=== PATIENT | male | born 1960 | race Hispanic/Latino ===

== ENCOUNTER 2018-11-25 13:42 | Emergency (ER) | payer MEDICAID, OTHER ==
[2018-11-25 14:31] LABS: #Eosinphils 0.1 thou/uL (0.0-0.7); #Lymphocytes 1.2 thou/uL (1.20-3.40); #Monocytes 0.8 thou/uL (0.11-0.59); #Neutrophils 17.6 thou/uL (1.40-6.50); %Basophils 0.1 % (0.0-1.0); %Eosinophils 0.5 % (0.0-10.0); %Lymphocytes 6.1 % (21.0-51.0); %Monocytes 4.1 % (0.0-10.0); %Neutrophils 89.3 % (42.0-75.0); Hemoglobin 10.7 g/dL (14.0-18.0); Mean Corpuscular HGB CONC 34.7 g/dL (32.0-36.0); Mean Corpuscular Hemoglobin 31.7 pg (27.0-31.0); Mean Corpuscular Volume 91.6 fL (78.0-98.0); Mean Platelet Volume 6.9 fL (7.4-10.4); Platelet Count 176 thou/uL (130-400); RBC Distribution Width 12.3 % (11.5-14.5); Red Blood Cell (RBC) Count 3.38 mill/uL (4.70-6.10); White Blood Cell (WBC) Count 19.7 thou/uL (4.8-10.8)
[2018-11-25 14:48] LABS: ALT (SGPT) 17 U/L (8-55); AST (SGOT) 36 U/L (5-34); Albumin 1.8 g/dL (3.5-5.0); Alkaline Phosphatase 139 U/L (40-150); Anion Gap 11 mmol/L (10-20); BUN (Urea Nitrogen) 38 mg/dL (8.4-25.7); Bilirubin, Total 1.5 mg/dL (0.2-1.2); Calc. Creatinine Clearance 0 mL/min (70-130); Calcium 7.8 mg/dL (7.8-10.44); Carbon Dioxide 22 mmol/L (22-29); Chloride 108 mmol/L (98-107); Estimated GFR-MDRD 67; Globulin 3.4 g/dL (2.4-3.5); Glucose 258 mg/dL (70-105); Potassium 4.3 mmol/L (3.5-5.1); Protein, Total 5.2 g/dL (6.0-8.3); Sodium 137 mmol/L (136-145)
--- NOTE | 2018-11-25 15:05 | RAD ---
PORTABLE CHEST: Date: 11/25/18 HISTORY: Cough. FINDINGS: Heart size is within normal limits for portable technique. Mediastinal structures are unremarkable. L ungs are clear of infiltrates. Slight increased density in the right upper lobe is felt to be on the basis of superimposition. IMPRESSION: No active intrathoracic disease. POS: [facility]
[2018-11-25] MEDS ORDERED: cefTRIAXone\\ROCEPHIN 2 GM VIAL ONE (15:58)
--- NOTE | 2018-11-25 17:31 | ULT ---
ULTRASOUND WITH DOPPLER DUPLEX VENOUS LOWER EXTREMITY LEFT: CPT: 50453 ICD-10-PCS: B54D INDICATION: Fever, edema, pain. TECHNIQUE: Color flow Doppler, spectral waveform analysis of pulsed Doppler, and carey-scale imaging with arcelia mohsen and augmentation, were used to evaluate the left common femoral, femoral, popliteal, posterior t ibial, and superficial femoral, veins; and the proximal portions of the profunda femoral and greater saphenous, veins. FINDINGS: There is appropriate compressibility and flow within the imaged deep vein system of the left lower ex tremity without evidence of deep venous thrombosis. Incidental note of enlarged left inguinal region lymph node, greater than 3.0 cm in length. There is soft tissue edema. IMPRESSION: 1. No deep venous thrombosis of imaged left lower extremity. 2. Left inguinal adenopathy, correlate clinically. 3. Soft tissue edema. POS: [facility]
== END 2018-11-25 17:23 | disposition home or self-care (01) ==
LOC: ERS 13:42
DX: L03.116 Cellulitis of left lower limb (principal); I50.9 Heart failure, unspecified; E11.9 Type 2 diabetes mellitus without complications; Z79.899 Other long term (current) drug therapy
CPT/HCPCS: 36415; 71045; 80048; 83605; 85025; 87040; 87077; 87149; 87186; 87804; 93005; 96361; 96365; J0696

== ENCOUNTER 2018-12-09 10:43 | Emergency (ER) | payer MEDICAID, OTHER ==
[2018-12-09] MEDS ORDERED: HYDROcodone/Acetaminophen 10/325 mg Tablet ONE (11:22)
[2018-12-09 11:37] LABS: #Basophils 0.1 thou/uL (0.0-0.2); #Eosinphils 1.3 thou/uL (0.0-0.7); #Lymphocytes 1.8 thou/uL (1.20-3.40); #Monocytes 0.5 thou/uL (0.11-0.59); %Eosinophils 13.5 % (0.0-10.0); %Lymphocytes 18.3 % (21.0-51.0); %Monocytes 5.2 % (0.0-10.0); Hemoglobin 9.7 g/dL (14.0-18.0); Mean Corpuscular HGB CONC 34.2 g/dL (32.0-36.0); Mean Corpuscular Hemoglobin 32.7 pg (27.0-31.0); Mean Corpuscular Volume 95.4 fL (78.0-98.0); Mean Platelet Volume 6.4 fL (7.4-10.4); Platelet Count 169 thou/uL (130-400); RBC Distribution Width 13.1 % (11.5-14.5); Red Blood Cell (RBC) Count 2.98 mill/uL (4.70-6.10); White Blood Cell (WBC) Count 9.7 thou/uL (4.8-10.8)
[2018-12-09 12:15] LABS: Bilirubin Negative (Negative); Blood, Urine Large (Negative); Clarity CLEAR (Clear); Glucose, Urine (Dipstick) Negative (Negative); Leukocyte Negative (Negative); Nitrite Negative (Negative); Protein, Urine (Dipstick) 100 mg/dL (Neg-Trace); Urobilinogen 0.2 mg/dL (0.2-1.0)
[2018-12-09 12:16] LABS: ALT (SGPT) 16 U/L (8-55); AST (SGOT) 31 U/L (5-34); Albumin 1.7 g/dL (3.5-5.0); Alkaline Phosphatase 123 U/L (40-150); Anion Gap 8 mmol/L (10-20); BUN (Urea Nitrogen) 32 mg/dL (8.4-25.7); Bilirubin, Total 0.9 mg/dL (0.2-1.2); Calc. Creatinine Clearance 0 mL/min (70-130); Carbon Dioxide 20 mmol/L (22-29); Chloride 113 mmol/L (98-107); Estimated GFR-MDRD 83; Globulin 3.1 g/dL (2.4-3.5); Glucose 301 mg/dL (70-105); Potassium 4.7 mmol/L (3.5-5.1); Protein, Total 4.8 g/dL (6.0-8.3)
[2018-12-09 12:21] LABS: Pathc Cast-AUWi Flag 2.31 (0-2.49); Squamous Epithelial 0-3 HPF (0-3); WBC/HPF 0-3 HPF (0-3)
[2018-12-09 12:22] LABS: Sodium 136 mmol/L (136-145)
[2018-12-09 12:33] LABS: Bacteria/HPF Rare-Few HPF (None Seen); Hyaline Casts/LPF NONE SEEN LPF (0-3 Hyaline)
--- NOTE | 2018-12-09 13:34 | ULT ---
VENOUS DOPPLER ULTRASOUND OF THE LEFT LOWER EXTREMITY: Date: 12/09/18 HISTORY: Left lower extremity edema and erythema. TECHNIQUE: Lemon scale ultrasound with color flow and spectral Doppler imaging of the deep venous systems of the left lower extremity was performed. FINDINGS: There is good flow, compression, and augmentation noted in the common femoral, femoral, deep femoral, popliteal, posterior tibial, and greater saphenous veins in the left lower extremity. Enlarged left groin lymph nodes are seen, measuring up to 3.4 cm. IMPRESSION: No evidence of deep venous thrombosis in the left lower extremity. POS: [facility]
== END 2018-12-09 13:13 | disposition home or self-care (01) ==
LOC: ERS 10:43
DX: L03.116 Cellulitis of left lower limb (principal); I50.9 Heart failure, unspecified; E11.9 Type 2 diabetes mellitus without complications; Z79.899 Other long term (current) drug therapy; Z79.4 Long term (current) use of insulin
CPT/HCPCS: 36415; 80053; 81003; 81015; 85025; 86140

== ENCOUNTER 2019-01-03 15:57 | Emergency (ER) | payer OTHER | END 2019-01-03 16:31 | disposition left against medical advice (07) | LOC: ERS 15:57 | DX: Z53.21 Procedure and treatment not carried out due to patient leaving prior to being seen by health care provider (principal) ==

== ENCOUNTER 2019-01-04 06:04 | Inpatient (IN) | payer OTHER ==
[2019-01-04 07:01] LABS: #Basophils 0.1 thou/uL (0.0-0.2); #Eosinphils 2.2 thou/uL (0.0-0.7); #Lymphocytes 2.7 thou/uL (1.20-3.40); #Monocytes 0.6 thou/uL (0.11-0.59); #Neutrophils 3.6 thou/uL (1.40-6.50); %Basophils 1.2 % (0.0-1.0); %Eosinophils 23.8 % (0.0-10.0); %Lymphocytes 29.2 % (21.0-51.0); %Monocytes 6.7 % (0.0-10.0); %Neutrophils 39.1 % (42.0-75.0); Hemoglobin 9.5 g/dL (14.0-18.0); Mean Corpuscular Hemoglobin 32.2 pg (27.0-31.0); Mean Corpuscular Volume 94.7 fL (78.0-98.0); Mean Platelet Volume 6.7 fL (7.4-10.4); Platelet Count 138 thou/uL (130-400); RBC Distribution Width 13.7 % (11.5-14.5); Red Blood Cell (RBC) Count 2.95 mill/uL (4.70-6.10); White Blood Cell (WBC) Count 9.1 thou/uL (4.8-10.8)
[2019-01-04 07:26] LABS: ALT (SGPT) 18 U/L (8-55); AST (SGOT) 39 U/L (5-34); Albumin 1.5 g/dL (3.5-5.0); Alkaline Phosphatase 185 U/L (40-150); Anion Gap 8 mmol/L (10-20); BUN (Urea Nitrogen) 25 mg/dL (8.4-25.7); Bilirubin, Total 0.7 mg/dL (0.2-1.2); Calc. Creatinine Clearance 0 mL/min (70-130); Calcium 7.9 mg/dL (7.8-10.44); Carbon Dioxide 24 mmol/L (22-29); Chloride 109 mmol/L (98-107); Estimated GFR-MDRD 82; Globulin 3.4 g/dL (2.4-3.5); Glucose 187 mg/dL (70-105); Potassium 4.6 mmol/L (3.5-5.1); Protein, Total 4.9 g/dL (6.0-8.3); Sodium 136 mmol/L (136-145)
[2019-01-04 08:15] VITALS: BMI 35.5
[2019-01-04] MEDS ORDERED: Bisacodyl 5 MG TAB PO PRN (08:44)
[2019-01-04] MEDS ORDERED: Vancomycin HCl 1 GM in Premix Bag 1 BAG IVPB SCH (08:45)
[2019-01-04] MEDS ORDERED: Dextrose 50% Abboject 50 ML SYRINGE SLOW IVP PRN (08:49)
[2019-01-04] MEDS ORDERED: Dextrose 5% in Water 1,000 ML IV PRN (08:49)
[2019-01-04] MEDS ORDERED: Piperacillin/Tazobactam 3.375 GM in Sodium Chloride 0.9% 100 ML IVPB SCH (09:00)
[2019-01-04] MEDS: Vancomycin HCl 1.5 GM in Sodium Chloride 0.9% 250 ML 300 ML IVPB SCH ×2 (09:26→21:07)
[2019-01-04] MEDS: traMADol HCl 50 MG TAB PO PRN ×2 (09:26→20:13)
[2019-01-04] MEDS: Enoxaparin Sodium 40 MG/0.4 ML SYRINGE SC SCH (09:28)
--- NOTE | 2019-01-04 11:44 | HP ---
PRIMARY CARE PROVIDER: Dr. Jean Pierre Kerr. COMMUNICATIONS EQUIPMENT OPERATOR: Dr. Chambers. JEWELRY RACKER: Dr. Shaw. CHIEF COMPLAINT: Left leg abscess. HISTORY OF PRESENT ILLNESS: Mr. Eanrest Godwin is a pleasant 58-year-old gentleman, who was seen at [facility] on 01/04/2019. He reports that he has had cellulitis over the left leg for the last month. On 11/25/2018, he presented to the emergency room with left leg cellulitis. He also met the criteria for sepsis. He was advised admission for inpatient treatment. He did not wish to be admitted to the hospital. He received a dose of ceftriaxone and was discharged home on Keflex and clindamycin. He presented again to the emergency room on 12/04/2018 for ongoing left leg cellulitis. He was discharged home with doxycycline. He presented to the emergency room yesterday again, but left without being seen. He again returned to the emergency room because of ongoing cellulitis. He was found to have an abscess and underwent incision and drainage in the emergency room. Because he failed outpatient antibiotic therapy, he is being admitted to the hospital for intravenous antibiotics. He reports pain in the left leg, sharp, 8/10 at its worst, radiating to the knee. He is able to walk. He denies any fevers or chills. He denies any nausea or vomiting. REVIEW OF SYSTEMS: All other systems reviewed and found to be negative. PAST MEDICAL HISTORY: 1. Cirrhosis. 2. Hypertension. 3. Heart failure. 4. Diabetes mellitus type 2. PAST SURGICAL HISTORY: Incision and drainage in the emergency room earlier today of left leg abscess. SOCIAL HISTORY: The patient denies tobacco use, alcohol use, or recreational drug use. ALLERGIES: NO KNOWN DRUG ALLERGIES. CURRENT MEDICATIONS: 1. Potassium chloride 10 mEq 2 times a day. 2. Spironolactone 100 mg 2 times a day. 3. Xifaxan 550 mg 2 times a day. 4. Decara 50,000 units once a week. 5. Lasix 40 mg 2 times a day. 6. Propranolol 20 mg 2 times a day. 7. Folic acid 1 mg daily. 8. Losartan 25 mg daily. 9. Tramadol p.r.n. FAMILY HISTORY: No family history of premature coronary artery disease. PHYSICAL EXAMINATION: GENERAL: On examination, Mr. Earnest Godwin is awake and alert, not in acute distress. VITAL SIGNS: Blood pressure is 150/62, pulse 61, respiratory rate 16, and oxygen saturation 99% on room air. He is afebrile. EYES: No scleral icterus. No conjunctival pallor. ENT: Moist mucosal membranes. No oropharyngeal erythema or exudates. NECK: Supple, nontender. Trachea is midline. RESPIRATORY: Accessory muscles of breathing are not active. Chest wall movements are symmetric bilaterally. Lungs are clear to auscultation without wheeze, rhonchi, or crepitations. CARDIOVASCULAR: S1 and S2 are heard, regular. Peripheral pulses palpable. NEUROLOGIC: Cranial nerves 2 through 12 intact. No flapping tremor. MUSCULOSKELETAL: Power is 5/5 in all 4 extremities. SKIN: He has bilateral lower extremity edema. He also has stasis dermatitis over the left lower extremity. He also has dressing over incision and drainage site of the abscess. LYMPHATIC: No inguinal lymphadenopathy. PSYCHIATRIC: Normal mood. Normal affect. The patient is oriented to person, place, and time. LABORATORY DATA: Mr. Tinoco's labs and investigations were reviewed. He has normal white count, normocytic anemia with hemoglobin 9.5, normal platelet count , normal sodium, normal potassium, and normal creatinine. Total bilirubin is normal. Lactic acid is normal. AST is elevated at 39, ALT is normal at 18, and alkaline phosphatase is elevated at 185. Albumin is decreased at 1.5. ASSESSMENT AND PLAN: Mr. Earnest Godwin is a pleasant 58-year-old gentleman, who was seen at [facility] on 01/04/2019. His problem list includes: 1. Leg abscess: Mr. Earnest Godwin is presenting with left lower extremity abscess, status post incision and drainage. He has failed outpatient antibiotic therapy. We will continue him on Zosyn and vancomycin, which have been started in the emergency room. We will follow blood cultures and abscess fluid culture. 2. Diabetes mellitus type 2: We will start him on Accu-Cheks and insulin sliding scale. He reports that he takes Levemir on a sliding scale at home and has not been taking much of Levemir because his sugars have tended to be around 150. 3. Cirrhosis: We will continue home medications. 4. Congestive heart failure: The patient does not appear to be in congestive heart failure exacerbation. 5. Hypertension: We will continue home medications, monitor vital signs and titrate antihypertensives as needed. Many thanks for allowing me to participate in your patient's care. Please feel free to contact me with any questions or concerns. LEVEL OF RISK: Moderate. LEVEL OF COMPLEXITY: Moderate. Job ID: [id number] [email or web address]
[2019-01-04] MEDS: Piperacillin/Tazobactam 3.375 GM in Sodium Chloride 0.9% 100 ML IVPB SCH ×2 (12:18→17:46)
[2019-01-04] MEDS: HumaLOG 300 UNITS/3 ML VIAL SC PRN (12:18)
[2019-01-04] MEDS: Morphine 2 MG/ML SYRINGE SLOW IVP PRN ×2 (12:22→18:27)
[2019-01-04] MEDS: Acetaminophen 325 MG TAB PO PRN (20:14)
[2019-01-05] MEDS: Piperacillin/Tazobactam 3.375 GM in Sodium Chloride 0.9% 100 ML IVPB SCH ×4 (00:07→17:50)
[2019-01-05] MEDS: Morphine 2 MG/ML SYRINGE SLOW IVP PRN ×4 (00:08→17:53)
[2019-01-05] MEDS: HumaLOG 300 UNITS/3 ML VIAL SC PRN ×2 (05:24→11:58)
[2019-01-05 06:58] LABS: Anion Gap 7 mmol/L (10-20); BUN (Urea Nitrogen) 25 mg/dL (8.4-25.7); Calc. Creatinine Clearance 138 mL/min (70-130); Calcium 7.7 mg/dL (7.8-10.44); Carbon Dioxide 24 mmol/L (22-29); Chloride 110 mmol/L (98-107); Estimated GFR-MDRD 86; Glucose 134 mg/dL (70-105); Potassium 4.4 mmol/L (3.5-5.1); Sodium 137 mmol/L (136-145)
[2019-01-05 07:03] LABS: Hemoglobin 8.8 g/dL (14.0-18.0); Hypochromia SLIGHT = 6-15 cells (100X) (0-5/hpf); Lymphocytes 21 % (21-51); MDiff Complete? YES; Mean Corpuscular HGB CONC 35.1 g/dL (32.0-36.0); Mean Corpuscular Hemoglobin 33.3 pg (27.0-31.0); Mean Corpuscular Volume 94.7 fL (78.0-98.0); Mean Platelet Volume 6.7 fL (7.4-10.4); Monocytes 7 % (0-10); Neutrophil 72 % (42-75); Platelet Count 111 thou/uL (130-400); Platelet Morphology Comment Appears Adequate; RBC Distribution Width 13.6 % (11.5-14.5); Red Blood Cell (RBC) Count 2.65 mill/uL (4.70-6.10)
[2019-01-05] MEDS: Enoxaparin Sodium 40 MG/0.4 ML SYRINGE SC SCH (08:42)
[2019-01-05] MEDS: Vancomycin HCl 1.5 GM in Sodium Chloride 0.9% 250 ML 300 ML IVPB SCH ×2 (09:11→21:57)
--- NOTE | 2019-01-05 15:11 | PDOC.PN ---
- Subjective Encounter Start Date: 01/05/19 Encounter Start Time: 15:09 Subjective: feels much better -: repprts that his left leg swelling & redness & pain is much better - Objective MAR Reviewed: Yes Vital Signs & Weight: Vital Signs (12 hours) Temp Pulse Resp BP BP Pulse Ox 01/05/19 12:00 97.6 F 75 19 120/67 98 01/05/19 08:00 98 01/05/19 07:23 97.6 F 61 19 117/63 98 01/05/19 04:33 97.6 F 68 20 139/75 99 Weight Weight 240 lb 8 oz I&O: 01/04/19 01/05/19 01/06/19 06:59 06:59 06:59 Intake Total 1100 Balance 1100 Result Diagrams: 01/05/19 06:03 01/05/19 06:03 Additional Labs: Accuchecks 01/05/19 01/05/19 01/04/19 11:18 04:36 19:35 POC Glucose 214 H 160 H 170 H 01/04/19 15:45 POC Glucose 198 H Microbiology 01/04/19 Unknown Venous blood - Left Arm Blood Culture - Preliminary Specimen has been received and culture in progress. No Growth to date. 01/04/19 06:50 Venous blood - Right Arm Blood Culture - Preliminary Specimen has been received and culture in progress. No Growth to date. 01/04/19 06:32 Leg - Pending Bacterial Culture - Preliminary Gram Negative Solomon 01/04/19 06:32 Leg - Pending Bacterial Culture - Preliminary Laboratory Tests 01/04/19 Unknown Lactic Acid 0.9 Phys Exam - Physical Examination Constitutional: NAD HEENT: PERRLA, moist MMs, sclera anicteric, oral pharynx no lesions Neck: no nodes, no JVD, supple, full ROM Respiratory: no wheezing, no rales, no rhonchi, clear to auscultation bilateral Cardiovascular: RRR, no significant murmur Gastrointestinal: soft, non-tender, no distention, positive bowel sounds Musculoskeletal: no edema, pulses present Dx/Plan (1) Left leg cellulitis Code(s): L03.116 - CELLULITIS OF LEFT LOWER LIMB Status: Acute Comment: on empiric IV Abx. Failed OP ABx. 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 Follow OP w GI Case (4) H/O alcohol abuse Code(s): Z87.898 - PERSONAL HISTORY OF OTHER SPECIFIED CONDITIONS Status: Chronic Comment: Quit 2 yrs ago (5) Hepatitis C Code(s): B19.20 - UNSPECIFIED VIRAL HEPATITIS C WITHOUT HEPATIC COMA Status: Chronic Qualifiers: Viral hepatitis chronicity: chronic Comment: reports he is s/p complete Rx recently (6) Chronic CHF Code(s): I50.9 - HEART FAILURE, UNSPECIFIED Status: Chronic Qualifiers: Heart failure type: unspecified Qualified Code(s): I50.9 - Heart failure, unspecified Comment: Follow sOP w Dr. Chambers in cardiology clinic. On ARB,diuretics. compensated - Plan plan discussed w/ family, continue antibiotics, PT/OT, out of bed/ambulate, DVT proph w/SCDs cont IV ABx. follow Cx results -: pt reports recent angiogram as an Op for legs which was Normal -: recent venous doppler Left leg negative for DVT -: retsart home meds. -: am labs * . Review of Systems - Review of Systems Constitutional: negative: fever, chills, sweats, weakness, malaise, other Respiratory: negative: Cough, Dry, Shortness of Breath, Hemoptysis, SOB with Excertion, Pleuritic Pain, Sputum, Wheezing Cardiovascular: negative: chest pain, palpitations, orthopnea, paroxysmal nocturnal dyspnea, edema, light headedness, other Gastrointestinal: negative: Nausea, Vomiting, Abdominal Pain, Diarrhea, Constipation, Melena, Hematochezia, Other Genitourinary: negative: Dysuria, Frequency, Incontinence, Hematuria, Retention , Other Musculoskeletal: negative: Neck Pain, Shoulder Pain, Arm Pain, Back Pain, Hand Pain, Leg Pain, Foot Pain, Other Skin: negative: Rash, Lesions, Pardeep, Bruising, Other Neurological: negative: Weakness, Numbness, Incoordination, Change in Speech, Confusion, Seizures, Other - Medications/Allergies Allergies/Adverse Reactions: Allergies Allergy/AdvReac Type Severity Reaction Status Date / Time No Known Allergies Allergy Verified 01/04/19 08:16 Medications: Current Medications Acetaminophen (Tylenol) 650 mg PO Q4H PRN PRN Reason: Headache/Fever/Mild Pain (1-3) Last Admin: 01/04/19 20:14 Dose: 650 mg Bisacodyl (Dulcolax) 10 mg PO DAILYPRN PRN PRN Reason: Constipation Dextrose/Water (Dextrose 50%) 25 gm SLOW IVP PRN PRN PRN Reason: Hypoglycemia Enoxaparin Sodium (Lovenox) 40 mg SC 0900 [facility] Last Admin: 01/05/19 08:42 Dose: 40 mg Glucagon (Glucagon) 1 mg IM PRN PRN PRN Reason: Hypoglycemia Dextrose/Water (D5w) 1,000 mls @ 0 mls/hr IV .Q0M PRN PRN Reason: Hypoglycemia Piperacillin Sod/Tazobactam (Sod 3.375 gm/ Sodium Chloride) 100 mls @ 200 mls/ hr IVPB Q6HR [facility] Last Admin: 01/05/19 11:57 Dose: 100 mls Vancomycin HCl 1.5 gm/ Sodium (Chloride) 300 mls @ 200 mls/hr IVPB Q12H [facility] Last Admin: 01/05/19 09:11 Dose: 300 mls Insulin Human Lispro (Humalog) 0 units SC .MILD SLIDING SCALE PRN PRN Reason: Mild Correctional Scale Last Admin: 01/05/19 11:58 Dose: 3 unit Miscellaneous Medication (Pharmacy To Dose) 1 each IVPB ASDIR [facility] Morphine Sulfate (Morphine) 2 mg SLOW IVP Q6H PRN PRN Reason: Moderate Pain (4-6) Last Admin: 01/05/19 11:59 Dose: 2 mg Sodium Chloride (Flush - Normal Saline) 10 ml IVF Q12HR [facility] Last Admin: 01/05/19 08:42 Dose: 10 ml Sodium Chloride (Flush - Normal Saline) 10 ml IVF PRN PRN PRN Reason: Saline Flush Tramadol HCl (Ultram) 50 mg PO Q6H PRN PRN Reason: Mild Pain (1-3) Last Admin: 01/04/19 20:13 Dose: 50 mg
[2019-01-05] MEDS ORDERED: traMADol HCl 50 MG TAB PO PRN (15:17)
[2019-01-05] MEDS ORDERED: CHOLECALCIFEROL 50000 UNIT PO SCH (15:30)
[2019-01-05] MEDS: Spironolactone 100 MG TAB PO SCH (20:32)
[2019-01-05] MEDS: Rifaximin 550 MG TAB PO SCH (20:32)
[2019-01-05] MEDS: Propranolol HCl 20 MG TAB PO SCH (20:32)
[2019-01-05] MEDS: Furosemide 40 MG TAB PO SCH (20:33)
[2019-01-05] MEDS: Potassium Chloride 10 MEQ TAB PO SCH (20:33)
[2019-01-05 21:31] LABS: Vancomycin, Trough 27.2 ug/mL
[2019-01-06] MEDS: Piperacillin/Tazobactam 3.375 GM in Sodium Chloride 0.9% 100 ML IVPB SCH ×2 (00:24→05:58)
[2019-01-06] MEDS: Morphine 2 MG/ML SYRINGE SLOW IVP PRN ×3 (00:24→18:26)
[2019-01-06] MEDS: Rifaximin 550 MG TAB PO SCH ×2 (08:18→20:59)
[2019-01-06] MEDS: Propranolol HCl 20 MG TAB PO SCH ×2 (08:18→20:58)
[2019-01-06] MEDS: Folic Acid 1 MG TAB PO SCH (08:18)
[2019-01-06] MEDS: Losartan 25 MG TAB PO SCH (08:18)
[2019-01-06] MEDS: Enoxaparin Sodium 40 MG/0.4 ML SYRINGE SC SCH (08:19)
[2019-01-06] MEDS: Potassium Chloride 10 MEQ TAB PO SCH ×2 (08:19→20:59)
[2019-01-06] MEDS: Spironolactone 100 MG TAB PO SCH ×2 (08:19→20:59)
[2019-01-06] MEDS: Furosemide 40 MG TAB PO SCH ×2 (08:19→20:59)
[2019-01-06] MEDS ORDERED: Vancomycin HCl 1.5 GM in Sodium Chloride 0.9% 250 ML 300 ML IVPB SCH (10:00)
[2019-01-06 10:20] LABS: Vancomycin, Random 21.2 ug/mL (See Comment)
[2019-01-06 10:24] LABS: Iron Binding Capacity, Total 129 mcg/dL (261-462)
[2019-01-06 10:25] LABS: Iron 75 ug/dL (65-175)
[2019-01-06] MEDS: cefTRIAXone\\ROCEPHIN 2 GM in Sodium Chloride 0.9% 100 ML IVPB SCH (12:25)
--- NOTE | 2019-01-06 14:07 | PDOC.PN ---
- Subjective Encounter Start Date: 01/06/19 Encounter Start Time: 14:05 Subjective: feels about the same.care discussed w at bedside -: leg swelling and redness same - Objective MAR Reviewed: Yes Vital Signs & Weight: Vital Signs (12 hours) Temp Pulse Resp BP Pulse Ox 01/06/19 08:00 96 01/06/19 07:21 98.2 F 103 H 20 119/66 96 Weight Weight 240 lb 8 oz I&O: 01/05/19 01/06/19 01/07/19 06:59 06:59 06:59 Intake Total 1100 920 Balance 1100 920 Result Diagrams: 01/05/19 06:03 01/05/19 06:03 Additional Labs: Accuchecks 01/06/19 01/06/19 01/05/19 11:45 06:00 19:27 POC Glucose 173 H 135 H 168 H 01/05/19 16:07 POC Glucose 183 H Microbiology 11/25/18 14:15 Nasal swab Influenza Types A,B Direct EIA - Final 11/25/18 14:03 Venous blood - Right Arm Blood Culture - Final Serratia marcescens 11/25/18 14:03 Venous blood - Left Arm Blood Culture - Final NO GROWTH IN 5 DAYS 01/04/19 Unknown Venous blood - Left Arm Blood Culture - Preliminary Specimen has been received and culture in progress. No Growth to date. 01/04/19 06:50 Venous blood - Right Arm Blood Culture - Preliminary Specimen has been received and culture in progress. No Growth to date. 01/04/19 06:32 Leg - Pending Bacterial Culture - Preliminary Gram Negative Solomon Laboratory Tests 11/25/18 12/09/18 01/04/19 13:57 11:26 Unknown Hgb 10.7 L 9.7 L 9.5 L Iron TIBC % Saturation 01/05/19 01/06/19 06:03 09:44 Hgb 8.8 L Iron 75 TIBC 129 L % Saturation 58 H Phys Exam - Physical Examination Constitutional: NAD HEENT: PERRLA, moist MMs, sclera anicteric, oral pharynx no lesions Neck: no nodes, no JVD, supple, full ROM Respiratory: no wheezing, no rales, no rhonchi, clear to auscultation bilateral Cardiovascular: RRR, no significant murmur, no rub Gastrointestinal: soft, non-tender, no distention, positive bowel sounds Musculoskeletal: pulses present, edema present (erythema,warmth same for left leg.) Psychiatric: normal affect, A&O x 3 Dx/Plan (1) Left leg cellulitis Code(s): L03.116 - CELLULITIS OF LEFT LOWER LIMB Status: Acute Comment: on empiric IV Abx. Failed OP ABx. 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 Follow OP w GI Dr. Shaw (4) H/O alcohol abuse Code(s): Z87.898 - PERSONAL HISTORY OF OTHER SPECIFIED CONDITIONS Status: Chronic Comment: Quit 2 yrs ago (5) Hepatitis C Code(s): B19.20 - UNSPECIFIED VIRAL HEPATITIS C WITHOUT HEPATIC COMA Status: Chronic Qualifiers: Viral hepatitis chronicity: chronic Comment: reports he is s/p complete Rx recently (6) Chronic CHF Code(s): I50.9 - HEART FAILURE, UNSPECIFIED Status: Chronic Qualifiers: Heart failure type: unspecified Qualified Code(s): I50.9 - Heart failure, unspecified Comment: Follow sOP w Dr. Chambers in cardiology clinic. On ARB,diuretics. compensated (7) Anemia of chronic disease Code(s): D63.8 - ANEMIA IN OTHER CHRONIC DISEASES CLASSIFIED ELSEWHERE Status : Chronic - Plan plan discussed w/ family, continue antibiotics, PT/OT, DVT proph w/SCDs Change ABx based on recent Blood Cx & past Blood Cx -: serratia in blood in 12/03.now GNR.Change to rocephin.cont vancomycin -: may need another 48 hrs of IV ABx, -: OP w/u for PAD normal per pt. -: am labs.home meds as above. * . Review of Systems - Review of Systems Constitutional: weakness, malaise. negative: fever, chills, sweats, other Respiratory: negative: Cough, Dry, Shortness of Breath, Hemoptysis, SOB with Excertion, Pleuritic Pain, Sputum, Wheezing Cardiovascular: edema. negative: chest pain, palpitations, orthopnea, paroxysmal nocturnal dyspnea, light headedness, other Gastrointestinal: negative: Nausea, Vomiting, Abdominal Pain, Diarrhea, Constipation, Melena, Hematochezia, Other Genitourinary: negative: Dysuria, Frequency, Incontinence, Hematuria, Retention , Other Musculoskeletal: negative: Neck Pain, Shoulder Pain, Arm Pain, Back Pain, Hand Pain, Leg Pain, Foot Pain, Other Skin: Rash - Medications/Allergies Allergies/Adverse Reactions: Allergies Allergy/AdvReac Type Severity Reaction Status Date / Time No Known Allergies Allergy Verified 01/04/19 08:16 Medications: Current Medications Acetaminophen (Tylenol) 650 mg PO Q4H PRN PRN Reason: Headache/Fever/Mild Pain (1-3) Last Admin: 01/04/19 20:14 Dose: 650 mg Bisacodyl (Dulcolax) 10 mg PO DAILYPRN PRN PRN Reason: Constipation Dextrose/Water (Dextrose 50%) 25 gm SLOW IVP PRN PRN PRN Reason: Hypoglycemia Enoxaparin Sodium (Lovenox) 40 mg SC 0900 [facility] Last Admin: 01/06/19 08:19 Dose: 40 mg Folic Acid (Folvite) 1 mg PO DAILY [facility] Last Admin: 01/06/19 08:18 Dose: 1 mg Furosemide (Lasix) 40 mg PO BID [facility] Last Admin: 01/06/19 08:19 Dose: 40 mg Glucagon (Glucagon) 1 mg IM PRN PRN PRN Reason: Hypoglycemia Dextrose/Water (D5w) 1,000 mls @ 0 mls/hr IV .Q0M PRN PRN Reason: Hypoglycemia Ceftriaxone Sodium 2 gm/ (Sodium Chloride) 100 mls @ 200 mls/hr IVPB Q24HR [facility] Last Admin: 01/06/19 12:25 Dose: 100 mls Vancomycin HCl 1 gm/ Device 200 mls @ 200 mls/hr IVPB 0300,1500 [facility] Insulin Human Lispro (Humalog) 0 units SC .MILD SLIDING SCALE PRN PRN Reason: Mild Correctional Scale Last Admin: 01/05/19 11:58 Dose: 3 unit Losartan Potassium (Cozaar) 25 mg PO DAILY [facility] Last Admin: 01/06/19 08:18 Dose: 25 mg Miscellaneous Medication (Pharmacy To Dose) 1 each IVPB ASDIR [facility] Morphine Sulfate (Morphine) 2 mg SLOW IVP Q6H PRN PRN Reason: Moderate Pain (4-6) Last Admin: 01/06/19 06:05 Dose: 2 mg Non-Formulary Medication (Cholecalciferol (Vitamin D3) [Decara]) 50,000 unit PO Q7D [facility] Potassium Chloride (Klor-Con 10) 10 meq PO BID [facility] Last Admin: 01/06/19 08:19 Dose: 10 meq Propranolol HCl (Inderal) 20 mg PO BID [facility] Last Admin: 01/06/19 08:18 Dose: 20 mg Rifaximin (Xifaxan) 550 mg PO BID [facility] Last Admin: 01/06/19 08:18 Dose: 550 mg Sodium Chloride (Flush - Normal Saline) 10 ml IVF Q12HR [facility] Last Admin: 01/06/19 12:25 Dose: 10 ml Sodium Chloride (Flush - Normal Saline) 10 ml IVF PRN PRN PRN Reason: Saline Flush Spironolactone (Aldactone) 100 mg PO BID [facility] Last Admin: 01/06/19 08:19 Dose: 100 mg Tramadol HCl (Ultram) 50 mg PO Q6H PRN PRN Reason: Mild Pain (1-3) Last Admin: 01/04/19 20:13 Dose: 50 mg Tramadol HCl (Ultram) 100 mg PO Q6HR PRN PRN Reason: Pain
[2019-01-06] MEDS: Vancomycin HCl 1 GM in Premix Bag 1 BAG IVPB SCH (15:27)
[2019-01-07] MEDS: Morphine 2 MG/ML SYRINGE SLOW IVP PRN ×3 (00:58→20:07)
[2019-01-07] MEDS: Vancomycin HCl 1 GM in Premix Bag 1 BAG IVPB SCH ×2 (02:43→14:55)
[2019-01-07 06:47] LABS: #Eosinphils 1.6 thou/uL (0.0-0.7); #Lymphocytes 2.2 thou/uL (1.20-3.40); #Monocytes 0.5 thou/uL (0.11-0.59); #Neutrophils 2.5 thou/uL (1.40-6.50); %Basophils 0.6 % (0.0-1.0); %Eosinophils 23.1 % (0.0-10.0); %Lymphocytes 32.5 % (21.0-51.0); %Neutrophils 36.7 % (42.0-75.0); Mean Corpuscular HGB CONC 35.4 g/dL (32.0-36.0); Mean Corpuscular Hemoglobin 33.6 pg (27.0-31.0); Mean Platelet Volume 6.9 fL (7.4-10.4); Platelet Count 113 thou/uL (130-400); RBC Distribution Width 13.7 % (11.5-14.5); Red Blood Cell (RBC) Count 2.39 mill/uL (4.70-6.10); White Blood Cell (WBC) Count 6.9 thou/uL (4.8-10.8)
[2019-01-07 06:57] LABS: Anion Gap 7 mmol/L (10-20); BUN (Urea Nitrogen) 20 mg/dL (8.4-25.7); Calc. Creatinine Clearance 131 mL/min (70-130); Calcium 7.6 mg/dL (7.8-10.44); Carbon Dioxide 23 mmol/L (22-29); Chloride 110 mmol/L (98-107); Estimated GFR-MDRD 81; Glucose 130 mg/dL (70-105); Sodium 136 mmol/L (136-145)
[2019-01-07] MEDS: Acetaminophen 325 MG TAB PO PRN ×2 (08:06→15:00)
[2019-01-07] MEDS: Potassium Chloride 10 MEQ TAB PO SCH ×2 (08:07→19:47)
[2019-01-07] MEDS: Propranolol HCl 20 MG TAB PO SCH ×2 (08:08→20:46)
[2019-01-07] MEDS: Folic Acid 1 MG TAB PO SCH (08:08)
[2019-01-07] MEDS: Rifaximin 550 MG TAB PO SCH ×2 (08:09→19:47)
[2019-01-07] MEDS: Furosemide 40 MG TAB PO SCH ×2 (08:09→19:47)
[2019-01-07] MEDS: Losartan 25 MG TAB PO SCH (08:10)
[2019-01-07] MEDS: Spironolactone 100 MG TAB PO SCH ×2 (08:10→19:47)
[2019-01-07] MEDS: Enoxaparin Sodium 40 MG/0.4 ML SYRINGE SC SCH (08:14)
[2019-01-07] MEDS: cefTRIAXone\\ROCEPHIN 2 GM in Sodium Chloride 0.9% 100 ML IVPB SCH (11:56)
[2019-01-07] MEDS: HumaLOG 300 UNITS/3 ML VIAL SC PRN (12:05)
--- NOTE | 2019-01-07 18:31 | PDOC.PN ---
- Subjective Encounter Start Date: 01/07/19 Encounter Start Time: 18:30 Subjective: f/u for LLE cellulitis/abscess with serratia spp on Vanc/Rocephin. -: Overall feeling better and no recurrent fever. Ambulating in room -: with cane. - Objective MAR Reviewed: Yes Vital Signs & Weight: Vital Signs (12 hours) Temp Pulse Resp BP Pulse Ox 01/07/19 12:06 97.9 F 73 14 115/71 98 01/07/19 08:00 98 01/07/19 07:42 97.9 F 71 16 139/76 98 Weight Admit Weight 240 lb 8 oz Weight 240 lb 8 oz I&O: 01/06/19 01/07/19 01/08/19 06:59 06:59 06:59 Intake Total 920 1160 Balance 920 1160 Result Diagrams: 01/07/19 06:03 01/07/19 06:03 Additional Labs: Accuchecks 01/07/19 01/07/19 01/07/19 16:44 11:36 05:35 POC Glucose 193 H 200 H 154 H 01/06/19 19:44 POC Glucose 174 H Microbiology 01/04/19 06:32 Leg - Pending Bacterial Culture - Final Serratia marcescens 01/04/19 Unknown Venous blood - Left Arm Blood Culture - Preliminary NO GROWTH AT 48 HOURS 01/04/19 06:50 Venous blood - Right Arm Blood Culture - Preliminary NO GROWTH AT 48 HOURS Laboratory Tests 01/04/19 01/05/19 01/05/19 Unknown 06:03 20:57 Hgb 9.5 L 8.8 L Vancomycin Trough 27.2 Random Vancomycin 01/06/19 09:44 Hgb Vancomycin Trough Random Vancomycin 21.2 Phys Exam - Physical Examination Constitutional: NAD HEENT: PERRLA, sclera anicteric, oral pharynx no lesions Neck: no nodes, no JVD, supple, full ROM Respiratory: no wheezing, no rales, no rhonchi, clear to auscultation bilateral S1, S2 Cardiovascular: RRR, no significant murmur, no rub, gallop Gastrointestinal: soft, non-tender, no distention, positive bowel sounds LLE with wound on medial, anterior calf, mild erythema peripherally Musculoskeletal: pulses present, edema present Neurological: normal sensation, moves all 4 limbs Psychiatric: A&O x 3 Skin: normal turgor, cap refill <2 seconds Dx/Plan (1) Left leg cellulitis Code(s): L03.116 - CELLULITIS OF LEFT LOWER LIMB Status: Acute Comment: Improved with Rocephin/Vancomycin, continue current IV abx regimen and monitor clinical response (2) Anemia of chronic disease Code(s): D63.8 - ANEMIA IN OTHER CHRONIC DISEASES CLASSIFIED ELSEWHERE Status : Chronic Comment: No evidence of active blood loss, serial H/H monitoring (3) Cirrhosis Code(s): K74.60 - UNSPECIFIED CIRRHOSIS OF LIVER Status: Chronic Qualifiers: Ascites presence: without ascites Comment: 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 Follow OP w [facility]des Case (4) Hepatitis C Code(s): B19.20 - UNSPECIFIED VIRAL HEPATITIS C WITHOUT HEPATIC COMA Status: Chronic Qualifiers: Viral hepatitis chronicity: chronic Comment: reports he is s/p complete Rx recently - Plan plan discussed w/ family, continue antibiotics, family welfare social work professor, out of bed/ ambulate Stable overall -: Continue Rocephin/Vancomycin -: WCT for local care -: OOB/ambulate -: AM lab: H/H * .
[2019-01-08 02:04] LABS: Platelet Count 98 thou/uL (130-400)
[2019-01-08] MEDS: Vancomycin HCl 1 GM in Premix Bag 1 BAG IVPB SCH (02:40)
[2019-01-08] MEDS ORDERED: Vancomycin HCl 1 GM in Premix Bag 1 BAG IVPB SCH (02:45)
[2019-01-08] MEDS: Morphine 2 MG/ML SYRINGE SLOW IVP PRN ×3 (04:17→18:38)
[2019-01-08] MEDS: Losartan 25 MG TAB PO SCH (08:36)
[2019-01-08] MEDS: Spironolactone 100 MG TAB PO SCH ×2 (08:36→19:54)
[2019-01-08] MEDS: Propranolol HCl 20 MG TAB PO SCH ×2 (08:36→19:53)
[2019-01-08] MEDS: Enoxaparin Sodium 40 MG/0.4 ML SYRINGE SC SCH (08:37)
[2019-01-08] MEDS: Furosemide 40 MG TAB PO SCH ×2 (08:37→19:53)
[2019-01-08] MEDS: Rifaximin 550 MG TAB PO SCH ×2 (08:37→19:54)
[2019-01-08] MEDS: Folic Acid 1 MG TAB PO SCH (08:37)
[2019-01-08] MEDS: Potassium Chloride 10 MEQ TAB PO SCH ×2 (08:37→19:53)
[2019-01-08] MEDS ORDERED: VITAMIN D3 PO SCH (10:00)
[2019-01-08] MEDS ORDERED: [UNRECOGNIZED DRUG - OTHER] PO SCH (10:00)
[2019-01-08] MEDS: cefTRIAXone\\ROCEPHIN 2 GM in Sodium Chloride 0.9% 100 ML IVPB SCH (10:26)
[2019-01-08] MEDS: HumaLOG 300 UNITS/3 ML VIAL SC PRN ×2 (11:47→18:37)
--- NOTE | 2019-01-08 15:39 | PDOC.PN ---
- Subjective Encounter Start Date: 01/08/19 Encounter Start Time: 15:35 Subjective: f/u for LLE cellulitis with serratia spp on Rocephin/Vancomycin. -: Feels better overall and less swelling a redness. - Objective MAR Reviewed: Yes Vital Signs & Weight: Vital Signs (12 hours) Temp Pulse Resp BP Pulse Ox 01/08/19 08:06 98.4 F 88 14 144/76 H 97 Weight Admit Weight 240 lb 8 oz Weight 240 lb 8 oz I&O: 01/07/19 01/08/19 01/09/19 06:59 06:59 06:59 Intake Total 1160 720 Balance 1160 720 Result Diagrams: 01/08/19 01:56 01/07/19 06:03 Additional Labs: Accuchecks 01/08/19 01/08/19 01/07/19 11:28 04:20 21:47 POC Glucose 206 H 136 H 185 H 01/07/19 16:44 POC Glucose 193 H Microbiology 01/04/19 06:32 Leg - Pending Bacterial Culture - Final Serratia marcescens 01/04/19 Unknown Venous blood - Left Arm Blood Culture - Preliminary NO GROWTH AT 48 HOURS 01/04/19 06:50 Venous blood - Right Arm Blood Culture - Preliminary NO GROWTH AT 48 HOURS Laboratory Tests 01/04/19 01/05/19 01/05/19 Unknown 06:03 20:57 Hgb 9.5 L 8.8 L Plt Count 111 L Vancomycin Trough 27.2 Random Vancomycin 01/06/19 01/07/19 01/08/19 09:44 06:03 01:56 Hgb 8.0 L Plt Count 113 L Vancomycin Trough 28.0 Random Vancomycin 21.2 Phys Exam - Physical Examination Constitutional: NAD HEENT: PERRLA, sclera anicteric, oral pharynx no lesions Neck: no nodes, no JVD, supple, full ROM Respiratory: no wheezing, no rales, no rhonchi, clear to auscultation bilateral S1, S2 Cardiovascular: RRR, no significant murmur, no rub, gallop Gastrointestinal: soft, non-tender, no distention, positive bowel sounds LLE edema bilat, wound noted on medial/anterior iqbal Musculoskeletal: pulses present Neurological: normal sensation, moves all 4 limbs Psychiatric: A&O x 3 Skin: normal turgor, cap refill <2 seconds Dx/Plan (1) Left leg cellulitis Code(s): L03.116 - CELLULITIS OF LEFT LOWER LIMB Status: Acute Comment: Improved with Rocephin/Vancomycin, continue current IV abx regimen and monitor clinical response (2) Anemia of chronic disease Code(s): D63.8 - ANEMIA IN OTHER CHRONIC DISEASES CLASSIFIED ELSEWHERE Status : Chronic Comment: No evidence of active blood loss, serial H/H monitoring (3) Cirrhosis Code(s): K74.60 - UNSPECIFIED CIRRHOSIS OF LIVER Status: Chronic Qualifiers: Ascites presence: without ascites Comment: 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 Follow OP w [facility] (4) Hepatitis C Code(s): B19.20 - UNSPECIFIED VIRAL HEPATITIS C WITHOUT HEPATIC COMA Status: Chronic Qualifiers: Viral hepatitis chronicity: chronic Comment: reports he is s/p complete Rx recently - Plan continue antibiotics, out of bed/ambulate Stable currently -: Continue Rocephin/Vancomycin -: [facility] for local care -: Continue Lasix 40mg BID -: OOB/ambulate * Likely home in 48h
[2019-01-09 02:18] LABS: Vancomycin, Random 16.4 ug/mL (See Comment)
[2019-01-09] MEDS: Propranolol HCl 20 MG TAB PO SCH ×2 (09:30→20:39)
[2019-01-09] MEDS: Furosemide 40 MG TAB PO SCH ×2 (09:30→20:39)
[2019-01-09] MEDS: Rifaximin 550 MG TAB PO SCH ×2 (09:30→20:39)
[2019-01-09] MEDS: Losartan 25 MG TAB PO SCH (09:31)
[2019-01-09] MEDS: Vancomycin HCl 750 MG in Sodium Chloride 0.9% 250 ML 250 ML IVPB SCH ×2 (09:31→20:42)
[2019-01-09] MEDS: Folic Acid 1 MG TAB PO SCH (09:31)
[2019-01-09] MEDS: Potassium Chloride 10 MEQ TAB PO SCH ×2 (09:31→20:39)
[2019-01-09] MEDS: Spironolactone 100 MG TAB PO SCH ×2 (09:31→20:40)
[2019-01-09] MEDS: Enoxaparin Sodium 40 MG/0.4 ML SYRINGE SC SCH (09:46)
--- NOTE | 2019-01-09 12:29 | PDOC.PN ---
- Subjective Encounter Start Date: 01/09/19 Encounter Start Time: 12:25 Subjective: f/u for LLE cellulitis/abscess s/p I&D with [facility] for local care on Vanc -: and Rocephin. Feels good overall. No fever or chills. Ambulating -: in room/halls. - Objective MAR Reviewed: Yes Vital Signs & Weight: Vital Signs (12 hours) Temp Pulse Resp BP Pulse Ox 01/09/19 11:00 98.4 F 75 18 128/74 98 01/09/19 08:00 98.7 F 78 18 117/63 95 Weight Admit Weight 240 lb 8 oz Weight 240 lb 8 oz I&O: 01/08/19 01/09/19 01/10/19 06:59 06:59 06:59 Intake Total 720 1900 Balance 720 1900 Result Diagrams: 01/08/19 01:56 01/07/19 06:03 Additional Labs: Accuchecks 01/09/19 01/08/19 01/08/19 05:29 20:32 16:45 POC Glucose 125 H 218 H 190 H Microbiology 01/04/19 06:32 Leg - Pending Bacterial Culture - Final Serratia marcescens 01/04/19 Unknown Venous blood - Left Arm Blood Culture - Preliminary NO GROWTH AT 48 HOURS 01/04/19 06:50 Venous blood - Right Arm Blood Culture - Preliminary NO GROWTH AT 48 HOURS Laboratory Tests 01/04/19 01/05/19 01/05/19 Unknown 06:03 20:57 Hgb 9.5 L 8.8 L Plt Count 111 L Vancomycin Trough 27.2 Random Vancomycin 01/06/19 01/07/19 01/08/19 09:44 06:03 01:56 Hgb 8.0 L Plt Count 113 L Vancomycin Trough 28.0 Random Vancomycin 21.2 Phys Exam - Physical Examination Constitutional: NAD HEENT: PERRLA, sclera anicteric, oral pharynx no lesions Neck: no nodes, no JVD, supple, full ROM Respiratory: no wheezing, no rales, no rhonchi, clear to auscultation bilateral S1, S2 Cardiovascular: RRR, no significant murmur, no rub, gallop Gastrointestinal: soft, non-tender, no distention, positive bowel sounds LLE with wound dressing in place, small amount of drainage noted Musculoskeletal: pulses present, edema present Neurological: normal sensation, moves all 4 limbs Psychiatric: A&O x 3 Skin: normal turgor, cap refill <2 seconds Dx/Plan (1) Left leg cellulitis Code(s): L03.116 - CELLULITIS OF LEFT LOWER LIMB Status: Acute Comment: Improved with Rocephin/Vancomycin, continue current IV abx regimen and monitor clinical response, convert to po abx in 24h (2) Anemia of chronic disease Code(s): D63.8 - ANEMIA IN OTHER CHRONIC DISEASES CLASSIFIED ELSEWHERE Status : Chronic Comment: No evidence of active blood loss, serial H/H monitoring (3) Cirrhosis Code(s): K74.60 - UNSPECIFIED CIRRHOSIS OF LIVER Status: Chronic Qualifiers: Ascites presence: without ascites Comment: 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
[2019-01-09] MEDS: Morphine 2 MG/ML SYRINGE SLOW IVP PRN (13:45)
[2019-01-09] MEDS: cefTRIAXone\\ROCEPHIN 2 GM in Sodium Chloride 0.9% 100 ML IVPB SCH (13:46)
[2019-01-09] MEDS: Acetaminophen 325 MG TAB PO PRN (17:42)
[2019-01-10] MEDS: Furosemide 40 MG TAB PO SCH (08:45)
[2019-01-10] MEDS: Rifaximin 550 MG TAB PO SCH (08:45)
[2019-01-10] MEDS: Folic Acid 1 MG TAB PO SCH (08:45)
[2019-01-10] MEDS: Propranolol HCl 20 MG TAB PO SCH (08:45)
[2019-01-10] MEDS: Losartan 25 MG TAB PO SCH (08:45)
[2019-01-10] MEDS: Spironolactone 100 MG TAB PO SCH (08:45)
[2019-01-10] MEDS: Potassium Chloride 10 MEQ TAB PO SCH (08:45)
[2019-01-10] MEDS: Vancomycin HCl 750 MG in Sodium Chloride 0.9% 250 ML 250 ML IVPB SCH (08:46)
[2019-01-10] MEDS: cefTRIAXone\\ROCEPHIN 2 GM in Sodium Chloride 0.9% 100 ML IVPB SCH (13:25)
[2019-01-10 16:19] VITALS: BP 161/83; TEMP 98.3
--- NOTE | 2019-01-11 01:59 | DIS ---
DATE OF ADMISSION: 01/04/2019 DATE OF DISCHARGE: 01/10/2019 DISCHARGE DIAGNOSES: 1. Left lower extremity cellulitis/abscess with Serratia marcescens. 2. Anemia of chronic disease. 3. Hepatic cirrhosis. 4. Hepatitis C, status post treatment. CONSULTATIONS: None. PERTINENT LAB AND X-RAY FINDINGS: Serum iron level 75, TIBC 129, percent saturation 58%. AST 39, ALT of 18, alkaline phosphatase 185. CBC showed a white blood cell count ranged between 6.9 to 9.1, hemoglobin ranged between 8.0 to 9.5. Left lower extremity wound culture dated 01/04/2019, positive for Serratia marcescens. Blood cultures x2 dated 01/04/2019 showed no growth at 5 days. HOSPITAL COURSE: The patient was initially admitted after presenting with left lower extremity swelling and redness concerning for cellulitis. The patient underwent evaluation, receiving initial antibiotic therapy with Rocephin and vancomycin. The patient underwent incision and drainage of the abscess on the anterior left lower extremity with placement of iodoform gauze packing. The patient received local wound care throughout the hospital course, as well as IV Rocephin and vancomycin. The patient's wound did improve with overall decreased erythema and edema. The patient transitioned to Levaquin 750 mg daily with recommendations for 10-day course of therapy after discharge. The patient remained clinically stable throughout the hospital course, ambulating with use of a cane and voiding appropriately. I have examined the patient at the time of discharge and discussed followup instructions. The patient is overall clinically stable and ready for discharge on 01/10/2019. DISCHARGE MEDICATIONS: 1. Levaquin 750 mg p.o. daily x10 days. 2. Vitamin D3 of 50,000 units p.o. q.7 days. 3. Folic acid 1 mg p.o. daily. 4. Lasix 40 mg p.o. b.i.d. 5. Losartan 25 mg p.o. daily. 6. Klor-Con 10 mEq p.o. b.i.d. 7. Propranolol 20 mg p.o. b.i.d. 8. Xifaxan 550 mg p.o. b.i.d. 9. Aldactone 100 mg p.o. b.i.d. 10. Tramadol 100 mg p.o. q.6 hours p.r.n. FOLLOWUP: The patient may follow up with Dr. Jean Pierre Kerr, within 7 days of discharge. CONDITION ON DISCHARGE: Stable. ACTIVITY: Ad-adele. DIET: ADA and heart healthy. SPECIAL INSTRUCTIONS: General wound care including soap and water cleaning with patting the area dry on the left lower extremity. CODE STATUS: Full. DISPOSITION: To home, 01/10/2019. TIME SPENT: Total time preparing and coordinating discharge, 33 minutes. Job ID: [id number]
== END 2019-01-10 15:15 | disposition home or self-care (01) | DRG 603 ==
LOC: ERS 06:04 → T4-A 07:29
PROVIDERS: ADMIT Internal Medicine; ATTEND Internal Medicine
PROC: 0H9LXZZ Drainage of Left Lower Leg Skin, External Approach (ICD-10-PCS; principal; 2019-01-04)
DX: L03.116 Cellulitis of left lower limb (principal); L02.416 Cutaneous abscess of left lower limb; D63.8 Anemia in other chronic diseases classified elsewhere; K70.30 Alcoholic cirrhosis of liver without ascites; E11.9 Type 2 diabetes mellitus without complications; I50.9 Heart failure, unspecified; B18.2 Chronic viral hepatitis C; B96.89 Other specified bacterial agents as the cause of diseases classified elsewhere; I11.0 Hypertensive heart disease with heart failure; Z79.899 Other long term (current) drug therapy; Z87.898 Personal history of other specified conditions
CPT/HCPCS: 10060; 36415; 36416; 80048; 80053; 80202; 83540; 83550; 83605; 85014; 85018; 85025; 85049; 87040; 87070; 87077; 87186; 87205; 96365; J0696; J1650; J2270; J2543; J3370; J3490; J7050

== ENCOUNTER 2019-02-14 09:50 | Outpatient (CLI) | payer OTHER ==
[2019-02-14] MEDS ORDERED: ISOVUE-370 76%-LOCM 1 ML ONE (10:43)
--- NOTE | 2019-02-14 13:27 | CT ---
CT ABDOMEN AND PELVIS WITH AND WITHOUT CONTRAST: Date: 02/14/19 Multiple axial tomograms obtained through the abdomen and pelvis pre and post IV contrast. Postcontra st images obtained in portal venous phase and delayed venous phase. INDICATIONS: Hematuria. Comparison made to prior CT abdomen and pelvis dated 04/23/18. FINDINGS: Lung bases reveal tiny left effusion. Streaky atelectasis and/or infiltrate in the left lung base. Images of the abdomen and pelvis show moderate to large volume ascites, which has increased when comp ared to exam of 04/23/18. There are changes of cirrhosis again noted. The liver is small with irregul ar contour. Changes of portal hypertension again noted with mild splenomegaly and splenic varices. The hepatic cystic lesion along the border of the liver anteriorly with peripheral calcification is s table in appearance and has been previously described on MRI. Density seen dependently in the neck of the gallbladder is again noted consistent with gallstones. Adrenal glands normal. Kidneys unremarkable. No hydronephrosis. The urinary bladder is contracted and not adequately evaluat ed. On postcontrast studies, both kidneys show symmetric enhancement and function. There is a cystic lesion involving the superomedial right kidney, which is stable. On delayed sequence, there is secret ion of contrast into the collecting structures. This appears symmetric and unremarkable. Small bowel loops normal caliber. Colon unremarkable. There is a recanalized umbilical vein and there are large venous varicosities in the right abdomen extending from the umbilical vein. Aorta normal caliber. IMPRESSION: 1. Moderate to large volume ascites, which has increased since prior exam. 2. Changes of cirrhosis and portal hypertension again noted, as described above. 3. Hepatic cystic lesion with peripheral calcification appears stable. 4. Evidence of cholelithiasis. 5. No evidence of hydronephrosis or enhancing renal mass. 6. Evidence of anasarca with diffuse haziness throughout the subcutaneous adipose. POS: [facility]
== END 2019-02-14 09:51 | disposition home or self-care (01) ==
LOC: BICCT 09:50
PROVIDERS: ATTEND Urology
DX: N47.1 Phimosis (principal); R31.29 Other microscopic hematuria; R18.8 Other ascites; K76.6 Portal hypertension; K74.60 Unspecified cirrhosis of liver; K80.20 Calculus of gallbladder without cholecystitis without obstruction; K76.9 Liver disease, unspecified
CPT/HCPCS: 74178; Q9966

== ENCOUNTER 2019-04-05 12:08 | Inpatient (IN) | payer OTHER ==
[2019-04-05] MEDS ORDERED: Piperacillin/Tazobactam 4.5 GM VIAL ONE (12:21)
[2019-04-05 12:38] LABS: #Lymphocytes 0.6 thou/uL (1.20-3.40); #Monocytes 0.6 thou/uL (0.11-0.59); #Neutrophils 10.5 thou/uL (1.40-6.50); %Basophils 0.2 % (0.0-1.0); %Eosinophils 0.1 % (0.0-10.0); %Lymphocytes 5.3 % (21.0-51.0); %Monocytes 4.8 % (0.0-10.0); %Neutrophils 89.6 % (42.0-75.0); Hemoglobin 9.3 g/dL (14.0-18.0); Mean Corpuscular HGB CONC 33.2 g/dL (32.0-36.0); Mean Corpuscular Hemoglobin 31.4 pg (27.0-31.0); Mean Corpuscular Volume 94.7 fL (78.0-98.0); Mean Platelet Volume 7.3 fL (7.4-10.4); Platelet Count 95 thou/uL (130-400); RBC Distribution Width 12.8 % (11.5-14.5); Red Blood Cell (RBC) Count 2.96 mill/uL (4.70-6.10); White Blood Cell (WBC) Count 11.8 thou/uL (4.8-10.8)
--- NOTE | 2019-04-05 12:41 | RAD ---
EXAM: Single view of the chest HISTORY: Sepsis COMPARISON: 11/25/2018 FINDINGS: Single view of the chest shows a normal sized cardiomediastinal silhouette. There is no shalini dence of consolidation, mass, or pleural effusion. The bones are unremarkable. IMPRESSION: No evidence of acute cardiopulmonary disease
[2019-04-05 12:54] LABS: ALT (SGPT) 17 U/L (8-55); AST (SGOT) 45 U/L (5-34); Albumin 1.9 g/dL (3.5-5.0); Alkaline Phosphatase 120 U/L (40-150); Anion Gap 12 mmol/L (10-20); BUN (Urea Nitrogen) 40 mg/dL (8.4-25.7); Bilirubin, Total 1.6 mg/dL (0.2-1.2); Calc. Creatinine Clearance 0 mL/min (70-130); Calcium 7.8 mg/dL (7.8-10.44); Carbon Dioxide 17 mmol/L (22-29); Chloride 113 mmol/L (98-107); Estimated GFR-MDRD 48; Globulin 3.7 g/dL (2.4-3.5); Glucose 185 mg/dL (70-105); Potassium 4.3 mmol/L (3.5-5.1); Protein, Total 5.6 g/dL (6.0-8.3); Sodium 138 mmol/L (136-145)
[2019-04-05 13:14] LABS: Bilirubin Negative (Negative); Blood, Urine 2+ (Negative); Clarity Clear (Clear); Glucose, Urine (Dipstick) 100 mg/dL (Negative); Leukocyte Negative Leu/uL (Negative); Nitrite Negative (Negative); Protein, Urine (Dipstick) 600 mg/dL (Neg-Trace); RBC/HPF Greater than 50 HPF (0-3); Squamous Epithelial 0-3 HPF (0-3); Urobilinogen Normal mg/dL (Less than 2)
[2019-04-05] MEDS ORDERED: Furosemide 20 MG/2 ML VIAL ONE ×2 (13:21→14:45)
[2019-04-05 13:25] LABS: Bacteria/HPF 1+ HPF (None Seen); Yeast-Budding 2+ HPF (None Seen)
[2019-04-05 14:53] LABS: CKMB 2.3 ng/mL (0-6.6)
--- NOTE | 2019-04-05 15:57 | HP ---
PRIMARY CARE PHYSICIAN: [facility]. REASON FOR ADMISSION: Acute on chronic diastolic congestive heart failure exacerbation, acute bronchitis, and cellulitis of left lower extremity. HISTORY OF PRESENT ILLNESS: A 58-year-old male, who has underlying cirrhosis of liver with portal hypertension, who presented to emergency room with complaint of increasing shortness of breath, cough, and wheezing. The patient is more short of than his usual level since yesterday. He was also having fever with chills. He had one episode of vomiting containing bile without any hematemesis. He does have increasing bilateral lower extremity edema with more pain on left lower extremity with mild erythema over left lower extremity. He denies any UTI symptoms. He denies any chest pain or palpitation. He denies any constipation or diarrhea. The patient was appeared more weak for last couple of days. He is taking all his medication regularly. In the emergency room, he had sepsis alert. He was actively wheezing, but his chest x-ray was normal. His troponin was elevated. His BNP was significantly elevated and he had significantly elevated troponin. In emergency room, the patient received appropriate IV antibiotic therapy with Zosyn and Lasix were given. Subsequently, the patient was admitted to telemetry floor. REVIEW OF SYSTEMS: CONSTITUTIONAL: Negative for weight loss or gain, ability to conduct usual activities. SKIN: Negative for rash, itching. EYES: Negative for double vision, pain. ENT/MOUTH: Negative for nose bleeding, neck stiffness, pain, tenderness. CARDIOVASCULAR: Negative for palpitations, dyspnea on exertion, orthopnea. RESPIRATORY: Negative for shortness of breath, wheezing, cough, hemoptysis, fever or night sweats. GASTROINTESTINAL: Negative for poor appetite, abdominal pain, heartburn, nausea, vomiting, constipation, or diarrhea. GENITOURINARY: Negative for urgency, frequency, dysuria, nocturia. MUSCULOSKELETAL: Negative for pain, swelling. NEUROLOGIC/PSYCHIATRIC: Negative for anxiety, depression. ALLERGY/IMMUNOLOGIC: Negative for skin rash, bleeding tendency. Please see my HPI for pertinent positive and negative. All other review of systems reviewed and negative except as mentioned in HPI. ALLERGIES: NO KNOWN DRUG ALLERGIES. CURRENT HOME MEDICATIONS: 1. Potassium chloride 10 mEq p.o. b.i.d. 2. Decara 50,000 units once a week. 3. Tramadol 50 mg q.6 hourly p.r.n. 4. Aldactone 100 mg p.o. twice daily. 5. Rifaximin 550 mg twice daily. 6. Lasix 40 mg b.i.d. 7. Inderal 20 mg p.o. b.i.d. 8. Folic acid 1 mg p.o. daily. 9. Flomax 0.4 mg p.o. daily. 10. Levemir 10 units subcu at bedtime. PAST MEDICAL HISTORY: Diabetes type 2, cirrhosis of liver, hypertension, chronic diastolic heart failure, history of hepatic encephalopathy, benign enlargement of prostate, and morbid obesity. PAST SURGICAL HISTORY: Reviewed and negative. PAST PSYCHIATRIC HISTORY: Reviewed and negative. SOCIAL HISTORY: The patient is , lives at home with his . No history of tobacco, alcohol, or illicit drug abuse. FAMILY HISTORY: No strong family history of premature coronary artery disease, stroke, or cancer. EMERGENCY ROOM COURSE: The patient received Zosyn and Lasix. PHYSICAL EXAMINATION: VITAL SIGNS: Currently, blood pressure 129/68, pulse 98, respiratory rate 24, temperature 99.6 with T maximum 101, saturation 99%, and weight 108 kg. GENERAL: The patient is currently alert, awake, follows simple commands. Appears weak and lethargic. No obvious acute distress. HEENT: Head; normocephalic, atraumatic. Eyes; pupils round and reactive to light. Extraocular muscle intact. ENT; oropharynx within normal limits. Moist mucous membranes. No oral lesion. No pharyngeal erythema. No exudate. NECK: Supple. Short neck. Difficult to assess JVD. LUNGS: Bilateral wheezing. Few basal rales noted. No respiratory muscle use. CARDIAC: S1 and S2, regular. Tachycardia. No murmur. No gallop. No rub. ABDOMEN: Obesity present. Ascites present. No organomegaly. No peritoneal sign. EXTREMITIES: Bilateral lower extremity pitting edema noted. Mild erythema on left lower extremity with tenderness. NEUROLOGIC: Grossly nonfocal examination. No asterixis. SIGNIFICANT LABORATORY DATA: Chest x-ray based on my review, no acute cardiopulmonary process. CBC; WBC 11.8, hemoglobin 9.3, and platelet 95. BMP; sodium 138, potassium 4.3, chloride 113, carbon dioxide 17, anion gap 12, BUN 40, creatinine 1.50, glucose 185, calcium 7.8, and lactic acid 2.4. LFT; AST 45, ALT 17, alkaline phosphatase 120, and albumin 1.09. BNP 3310. Troponin 0.926. CK-MB 2.3. Urinalysis; mild hematuria, proteinuria, glucosuria, and bacteriuria. ASSESSMENT: 1. Sepsis with lactic acidosis and acute organ dysfunction. 2. Acute kidney injury with metabolic acidosis. 3. Lactic acidosis due to sepsis. 4. Demand ischemia type 2, myocardial infarction, secondary to sepsis. 5. Acute on chronic diastolic congestive heart failure. 6. Acute bronchitis. 7. Hypoalbuminemia due to chronic liver disease. 8. Cirrhosis of liver with ascites. 9. Macrocytic anemia. 10. Thrombocytopenia. 11. Asymptomatic urinary tract infection. 12. Diabetes type 2. 13. Left lower extremity cellulitis. 14. History of hepatitis C. 15. Obesity. PLAN: 1. Admission to telemetry floor. Cardiology consultation for elevated troponin. Ultrasound of abdomen for evaluation of ascites. Echocardiography to assess EF and other structural abnormality. Empiric antibiotic therapy with vancomycin and Zosyn. 2. Lasix 20 mg IV b.i.d. DuoNeb therapy every 6 hourly and p.r.n. basis. Repeat labs tomorrow including ammonia, magnesium, lactic acid, CBC, CMP, PT/INR, and uric acid. Mucinex 600 mg twice daily. Folic acid and vitamin B12 therapy. Resume Flomax and Levemir insulin as per home dosage. Add lactulose 20 g p.o. b.i.d. 3. Deep venous thrombosis prophylaxis. Lovenox 30 mg subcu daily and monitor platelet count. 4. GI prophylaxis. Pepcid 20 mg p.o. daily. CODE STATUS: The patient is full code. The patient's is surrogate decision maker. DISPOSITION PLAN: Based on clinical course, we are expecting the patient's stay in hospital more than 2 midnights. Plan of care discussed with the patient in detail. Job ID: [id number]
[2019-04-05] MEDS ORDERED: Artificial Tears 18 DROP/0.9 ML EA EYE PRN (16:29)
[2019-04-05] MEDS ORDERED: Bisacodyl 10 MG SUPP PR PRN (16:29)
[2019-04-05] MEDS ORDERED: Diabetic Tussin 200 MG/10 ML UDCUP PO PRN (16:29)
[2019-04-05] MEDS ORDERED: Acetaminophen 325 MG TAB PO PRN (16:29)
[2019-04-05] MEDS ORDERED: Loratadine 10 MG TAB PO PRN (16:29)
[2019-04-05] MEDS ORDERED: Sodium Chloride 0.65% Nasal 44 ML BOT EA NARE PRN (16:29)
[2019-04-05] MEDS ORDERED: Ondansetron PF 4 MG/2 ML Vial IVP PRN (16:29)
[2019-04-05] MEDS ORDERED: Nitroglycerin 0.4 MG TAB (25 Tab Bottle) SL PRN (16:29)
[2019-04-05] MEDS ORDERED: Senokot S 8.6-50 MG TAB PO PRN (16:29)
[2019-04-05] MEDS ORDERED: HYDROcodone/Acetaminophen 5/325 mg Tablet PO PRN (16:29)
[2019-04-05] MEDS ORDERED: Calcium Carbonate 500 MG ChewTAB PO PRN (16:29)
[2019-04-05] MEDS ORDERED: Ondansetron ODT 4 MG TAB PO PRN (16:29)
[2019-04-05] MEDS ORDERED: hydrALAZINE 20 MG/ML VIAL SLOW IVP PRN (16:29)
[2019-04-05 17:20] LABS: Lactic Acid 2.7 mmol/L (0.5-2.2)
[2019-04-05] MEDS: Piperacillin/Tazobactam 3.375 GM in Sodium Chloride 0.9% 100 ML IVPB SCH (18:01)
[2019-04-05] MEDS ORDERED: Dextrose 5% in Water 1,000 ML IV PRN (18:43)
[2019-04-05] MEDS ORDERED: Dextrose 50% Abboject 50 ML SYRINGE IVP PRN (18:43)
[2019-04-05] MEDS ORDERED: Furosemide 40 MG/4 ML VIAL SLOW IVP SCH (18:45)
[2019-04-05] MEDS ORDERED: methylPREDNISolone Sod Succ 40 MG VIAL IVP SCH (18:45)
[2019-04-05] MEDS ORDERED: Sodium Chloride 0.9% 10 ML ONE (18:49)
[2019-04-05 20:48] LABS: Troponin I 2.393 ng/mL (< 0.028)
--- NOTE | 2019-04-05 22:19 | ULT ---
Limited abdominal ultrasound: 04/05/2019 COMPARISON: None HISTORY: Evaluate for ascites FINDINGS: Small volume right upper quadrant perihepatic free fluid. Small volume free fluid noted in the right and left lower quadrant. Small/moderate volume free fluid also noted in the left upper quadrant. The peripheral contour the liver is irregular suggesting cirrhosis. IMPRESSION: Diffuse small/moderate volume ascites throughout the abdomen/pelvis.
[2019-04-05] MEDS: Insulin Glargine 10 UNITS in Pre-Filled Syringe 1 EACH SC SCH (22:24)
[2019-04-05] MEDS: guaiFENesin ER 600 MG TAB PO SCH (22:24)
[2019-04-05] MEDS: Rifaximin 550 MG TAB PO SCH (22:24)
[2019-04-05] MEDS: Famotidine 20 MG TAB PO SCH (22:24)
[2019-04-05] MEDS ORDERED: Enoxaparin Sodium 100 MG/ML SYRINGE SC SCH (22:30)
[2019-04-05 23:43] LABS: Troponin I 2.524 ng/mL (< 0.028)
[2019-04-06] MEDS: Piperacillin/Tazobactam 3.375 GM in Sodium Chloride 0.9% 100 ML IVPB SCH ×4 (01:39→18:32)
[2019-04-06 03:37] LABS: #Lymphocytes 0.7 thou/uL (1.20-3.40); #Monocytes 0.4 thou/uL (0.11-0.59); %Basophils 0.4 % (0.0-1.0); %Eosinophils 0.1 % (0.0-10.0); %Lymphocytes 7.9 % (21.0-51.0); %Monocytes 4.8 % (0.0-10.0); %Neutrophils 86.9 % (42.0-75.0); Hemoglobin 8.3 g/dL (14.0-18.0); Mean Corpuscular HGB CONC 33.6 g/dL (32.0-36.0); Mean Corpuscular Hemoglobin 31.9 pg (27.0-31.0); Mean Corpuscular Volume 94.7 fL (78.0-98.0); Mean Platelet Volume 7.5 fL (7.4-10.4); Platelet Count 61 thou/uL (130-400); RBC Distribution Width 12.8 % (11.5-14.5); White Blood Cell (WBC) Count 9.2 thou/uL (4.8-10.8)
[2019-04-06 03:41] LABS: INR-International Normal Ratio 1.8; Prothrombin Time 20.4 SEC (12.0-14.7)
[2019-04-06 04:07] LABS: Lactic Acid 2.1 mmol/L (0.5-2.2)
[2019-04-06 04:10] LABS: ALT (SGPT) 17 U/L (8-55); AST (SGOT) 43 U/L (5-34); Albumin 1.6 g/dL (3.5-5.0); Alkaline Phosphatase 74 U/L (40-150); Anion Gap 11 mmol/L (10-20); BUN (Urea Nitrogen) 46 mg/dL (8.4-25.7); Bilirubin, Total 1.1 mg/dL (0.2-1.2); Calc. Creatinine Clearance 68 mL/min (70-130); Calcium 7.3 mg/dL (7.8-10.44); Carbon Dioxide 18 mmol/L (22-29); Chloride 113 mmol/L (98-107); Estimated GFR-MDRD 40; Globulin 3.1 g/dL (2.4-3.5); Glucose 229 mg/dL (70-105); Magnesium 1.3 mg/dL (1.6-2.6); Potassium 3.9 mmol/L (3.5-5.1); Protein, Total 4.7 g/dL (6.0-8.3); Sodium 138 mmol/L (136-145); Uric Acid 9.1 mg/dL (3.5-7.2)
[2019-04-06] MEDS: Furosemide 20 MG/2 ML VIAL SLOW IVP SCH ×2 (05:33→14:05)
[2019-04-06] MEDS ORDERED: Sodium Chloride 0.9% 10 ML ONE (07:45)
[2019-04-06] MEDS: Rifaximin 550 MG TAB PO SCH ×2 (08:52→21:01)
[2019-04-06] MEDS: Famotidine 20 MG TAB PO SCH ×2 (08:52→21:01)
[2019-04-06] MEDS: Aspirin Chewable 81 MG TAB PO SCH (08:52)
[2019-04-06] MEDS: HumaLOG 300 UNITS/3 ML VIAL SC PRN ×3 (08:53→17:32)
[2019-04-06] MEDS: Cyanocobalamin (Vitamin B-12) 1,000 MCG TAB PO SCH (08:53)
[2019-04-06] MEDS: guaiFENesin ER 600 MG TAB PO SCH ×2 (08:53→21:02)
[2019-04-06] MEDS ORDERED: Folic Acid 1 MG TAB PO SCH (09:00)
[2019-04-06] MEDS ORDERED: Enoxaparin Sodium 30 MG/0.3 ML SYRINGE SC SCH (09:00)
[2019-04-06] MEDS ORDERED: Tamsulosin HCl 0.4 MG CAP PO SCH (09:00)
[2019-04-06] MEDS: Enoxaparin Sodium 100 MG/ML SYRINGE SC SCH ×2 (09:21→20:32)
--- NOTE | 2019-04-06 11:10 | CON ---
DATE OF CONSULTATION: HISTORY: Cyrus Tinoco Junior is a 58-year-old male, previously evaluated by Dr. Chambers. He has history of chronic diastolic heart failure as well as hepatitis C and cirrhosis. Echocardiogram in May 2018 revealed ejection fraction of 50% to 55% with borderline left ventricular hypertrophy, mild left atrial enlargement, mild right atrial enlargement, mitral annular calcification, mild mitral regurgitation, mild pulmonic regurgitation and trace tricuspid regurgitation. He was recently hospitalized in December 2018, with left leg cellulitis. He presented yesterday to the emergency room. He cannot tell me exactly why, although he woke up and was confused. He states that he was coughing, but denied shortness of breath or chest pain. He was found to have an elevated troponin I and elevated BNP, and is admitted for further evaluation. PAST MEDICAL HISTORY: Hypertension, diabetes, chronic hepatitis C, diastolic heart failure, normal Cardiolite stress test in May 2018, history of hepatic encephalopathy, benign prostatic hypertrophy. OPERATIONS: Lower extremity angiography revealed no significant stenosis. MEDICATIONS: 1. Vitamin D3 50,000 units p.o. every 7 days. 2. Folic acid 1 mg daily. 3. Furosemide 40 b.i.d. 4. Potassium 10 mEq b.i.d. 5. Propranolol 20 b.i.d. 6. Xifaxan 550 b.i.d. 7. Aldactone 100 mg b.i.d. 8. Flomax 0.4 daily. 9. Tramadol p.r.n. ALLERGIES: NONE. SOCIAL HISTORY: He does not smoke. He apparently has history of alcohol abuse in the past, but does not drink now. FAMILY HISTORY: Mother had myocardial infarction. REVIEW OF SYSTEMS: Twelve-point review of systems is otherwise unremarkable. PHYSICAL EXAMINATION: VITAL SIGNS: Blood pressure of 122/68, pulse of 85. HEENT: PERRL. NECK: Supple. CHEST: Clear. He had wheezing at the time of admission. CARDIOVASCULAR: S1 and S2 normal without any S3, S4, or murmurs. ABDOMEN: Normal bowel sounds. EXTREMITIES: Revealed 1+ bilateral pretibial edema. Mild erythema of the left leg. NEUROLOGICAL: Grossly intact. IMAGING STUDIES: Chest x-ray is unremarkable. White count 9200, hemoglobin 8.3 , hematocrit 24.6, platelets 61,000. INR 1.8. Sodium 138, potassium 3.9, chloride 113, carbon dioxide 18, BUN 46, creatinine 1.76 (normal creatinine of 0.96 in December 2018), glucose 229. TSH is normal. Troponin I 2.524. BNP 3310. IMPRESSION: 1. Chronic diastolic heart failure with significantly elevated BNP. Normal ejection fraction on last echocardiogram. 2. Probable sepsis with lactic acidosis and acute kidney injury. 3. Acute kidney injury. 4. Demand ischemia, [id number] myocardial infarction type 2. 5. Hypoalbuminemia due to chronic liver disease. 6. Cirrhosis of the liver with ascites. 7. History of hepatitis C. 8. Thrombocytopenia. 9. Diabetes. 10. Hypertension. PLAN: Echocardiogram will be performed. The patient is being diuresed. Blood cultures thus far have no growth. We will follow the patient with you. Job ID: [id number] [facility]
[2019-04-06] MEDS ORDERED: Albumin 25% 25 GM/100 ML BOT IVPB SCH (15:15)
--- NOTE | 2019-04-06 15:58 | PDOC.PN ---
- Subjective Encounter Start Date: 04/06/19 Encounter Start Time: 10:15 Feeling better in general. Breathing comfortably. - Objective Resuscitation Status - Order Detail: 04/05/19 14:41 Resuscitation Status Routine Resuscitation Status: FULL: Full Resuscitation Vital Signs & Weight: Vital Signs (12 hours) Temp Pulse Resp BP BP Pulse Ox 04/06/19 11:20 98.4 F 75 18 115/58 L 100 04/06/19 10:50 84 16 100 04/06/19 07:33 98.3 F 85 22 H 122/68 100 04/06/19 07:14 77 16 98 04/06/19 04:25 98.2 F 77 20 111/59 L 100 Weight Weight 232 lb 3.2 oz I&O: 04/05/19 04/06/19 04/07/19 06:59 06:59 06:59 Intake Total 950 Output Total 150 Balance 800 Result Diagrams: 04/06/19 03:24 04/06/19 03:24 Additional Labs: Accuchecks 04/06/19 04/06/19 04/05/19 11:20 06:10 20:18 POC Glucose 220 H 242 H 188 H 04/05/19 17:05 POC Glucose 193 H Phys Exam - Physical Examination Constitutional: NAD Obese Respiratory: no wheezing, no rales, no rhonchi, clear to auscultation bilateral Cardiovascular: RRR, no significant murmur, no rub Gastrointestinal: soft, non-tender, no distention Obese with some ascites. Severe edema of BLE's (patient indicates it is much better than in the past Dx/Plan (1) Acute on chronic diastolic CHF (congestive heart failure) Code(s): I50.33 - ACUTE ON CHRONIC DIASTOLIC (CONGESTIVE) HEART FAILURE Status : Acute (2) Sepsis Code(s): A41.9 - SEPSIS, UNSPECIFIED ORGANISM Status: Acute (3) NSTEMI (non-ST elevated myocardial infarction) Code(s): I21.4 - NON-ST ELEVATION (NSTEMI) MYOCARDIAL INFARCTION Status: Acute Comment: Type II (4) Diabetes mellitus Code(s): E11.9 - TYPE 2 DIABETES MELLITUS WITHOUT COMPLICATIONS Status: Acute (5) Acute bronchitis Code(s): J20.9 - ACUTE BRONCHITIS, UNSPECIFIED Status: Acute (6) Acute renal insufficiency Code(s): N28.9 - DISORDER OF KIDNEY AND URETER, UNSPECIFIED Status: Acute (7) HTN (hypertension) Code(s): I10 - ESSENTIAL (PRIMARY) HYPERTENSION Status: Acute (8) Left leg cellulitis Code(s): L03.116 - CELLULITIS OF LEFT LOWER LIMB Status: Acute Comment: Improved with Rocephin/Vancomycin, continue current IV abx regimen and monitor clinical response, convert to po abx in 24h (9) Cirrhosis Code(s): K74.60 - UNSPECIFIED CIRRHOSIS OF LIVER Status: Chronic Qualifiers: Ascites presence: without ascites Comment: 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 Follow OP w ANTONIO Valdes Case (10) Hepatitis C Code(s): B19.20 - UNSPECIFIED VIRAL HEPATITIS C WITHOUT HEPATIC COMA Status: Chronic Qualifiers: Viral hepatitis chronicity: chronic Comment: reports he is s/p complete Rx recently (11) Anemia Code(s): D64.9 - ANEMIA, UNSPECIFIED Status: Acute - Plan * No clear evidence of cellulitis now. * Concerning for initial sepsis. Continue abx. with Vanc and Zosyn. If still looks good tomorrow, may be able simplify. * Echo for CHF with elevated BNP. Presuming diastolic now due to prior normal EF. * Continue to diurese. * Anemia is chronic but worse than baseline. Will need to watch. * Coagulopathy secondary to the liver disease.
[2019-04-06] MEDS: Insulin Glargine 10 UNITS in Pre-Filled Syringe 1 EACH SC SCH (21:02)
[2019-04-07] MEDS: Piperacillin/Tazobactam 3.375 GM in Sodium Chloride 0.9% 100 ML IVPB SCH ×2 (00:46→05:20)
[2019-04-07] MEDS: Furosemide 20 MG/2 ML VIAL SLOW IVP SCH (05:20)
[2019-04-07 05:49] LABS: Hemoglobin 7.5 g/dL (14.0-18.0); Platelet Count 72 thou/uL (130-400)
--- NOTE | 2019-04-07 07:36 | PDOC.PN ---
- Subjective Encounter Start Date: 04/07/19 Encounter Start Time: 07:35 Subjective: doing well except jittrey with nebs - Objective Resuscitation Status - Order Detail: 04/05/19 14:41 Resuscitation Status Routine Resuscitation Status: FULL: Full Resuscitation MAR Reviewed: Yes Vital Signs & Weight: Vital Signs (12 hours) Temp Pulse Resp BP Pulse Ox 04/07/19 05:18 98.2 F 87 18 145/70 H 98 04/06/19 21:49 92 20 04/06/19 20:55 97.9 F 88 18 141/70 H 100 Weight Weight 232 lb 3.2 oz I&O: 04/06/19 04/07/19 04/08/19 06:59 06:59 06:59 Intake Total 950 1690 Output Total 150 620 Balance 800 1070 Result Diagrams: 04/07/19 05:10 04/07/19 05:10 Additional Labs: Accuchecks 04/07/19 04/06/19 04/06/19 05:22 20:45 17:20 POC Glucose 244 H 265 H 208 H 04/06/19 11:20 POC Glucose 220 H Phys Exam - Physical Examination Neck: no JVD Respiratory: clear to auscultation bilateral Cardiovascular: RRR, no significant murmur Gastrointestinal: soft, non-tender, positive bowel sounds Musculoskeletal: edema present no erythema on either leg Dx/Plan (1) Acute bronchitis Code(s): J20.9 - ACUTE BRONCHITIS, UNSPECIFIED Status: Acute Qualifiers: Bronchitis organism: unspecified organism Qualified Code(s): J20.9 - Acute bronchitis, unspecified (2) Acute on chronic diastolic CHF (congestive heart failure) Code(s): I50.33 - ACUTE ON CHRONIC DIASTOLIC (CONGESTIVE) HEART FAILURE Status : Acute (3) Acute renal insufficiency Code(s): N28.9 - DISORDER OF KIDNEY AND URETER, UNSPECIFIED Status: Chronic (4) Anemia Code(s): D64.9 - ANEMIA, UNSPECIFIED Status: Chronic Qualifiers: Anemia type: unspecified type Qualified Code(s): D64.9 - Anemia, unspecified (5) Diabetes mellitus Code(s): E11.9 - TYPE 2 DIABETES MELLITUS WITHOUT COMPLICATIONS Status: Acute Qualifiers: Diabetes mellitus type: type 2 Diabetes mellitus fpc insulin use: without fpc use Diabetes mellitus complication status: with kidney complications Chronic kidney disease stage: stage 3 (moderate) (6) HTN (hypertension) Code(s): I10 - ESSENTIAL (PRIMARY) HYPERTENSION Status: Chronic Qualifiers: Hypertension type: essential hypertension Qualified Code(s): I10 - Essential (primary) hypertension (7) NSTEMI (non-ST elevated myocardial infarction) Code(s): I21.4 - NON-ST ELEVATION (NSTEMI) MYOCARDIAL INFARCTION Status: Acute Comment: Type II (8) Sepsis Code(s): A41.9 - SEPSIS, UNSPECIFIED ORGANISM Status: Acute Qualifiers: Sepsis type: sepsis due to unspecified organism Qualified Code(s): A41.9 - Sepsis, unspecified organism (9) Left leg cellulitis Code(s): L03.116 - CELLULITIS OF LEFT LOWER LIMB Status: Acute Comment: Improved with Rocephin/Vancomycin, continue current IV abx regimen and monitor clinical response, convert to po abx in 24h (10) Anemia of chronic disease Code(s): D63.8 - ANEMIA IN OTHER CHRONIC DISEASES CLASSIFIED ELSEWHERE Status : Chronic Comment: No evidence of active blood loss, serial H/H monitoring (11) Cirrhosis Code(s): K74.60 - UNSPECIFIED CIRRHOSIS OF LIVER Status: Chronic Qualifiers: Ascites presence: without ascites Comment: 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 Follow OP w ANTONIO Valdes [facility] (12) H/O alcohol abuse Code(s): Z87.898 - PERSONAL HISTORY OF OTHER SPECIFIED CONDITIONS Status: Chronic Comment: Quit 2 yrs ago (13) Hepatitis C Code(s): B19.20 - UNSPECIFIED VIRAL HEPATITIS C WITHOUT HEPATIC COMA Status: Chronic Qualifiers: Viral hepatitis chronicity: chronic Comment: reports he is s/p complete Rx recently - Plan cultures neg, apparent cellulitis resolved-deescalate antibx -: chest clear- transition to po diuretics -: discuss with cardiology * .
--- NOTE | 2019-04-07 08:52 | PDOC.EVN ---
Event Note - Event Note Event Note: down to 7.5. DC lovenox, rpt Hg at 1400hrs
[2019-04-07] MEDS: Famotidine 20 MG TAB PO SCH ×2 (09:15→21:23)
[2019-04-07] MEDS: Folic Acid 1 MG TAB PO SCH (09:15)
[2019-04-07] MEDS: Rifaximin 550 MG TAB PO SCH ×2 (09:15→21:23)
[2019-04-07] MEDS: Cyanocobalamin (Vitamin B-12) 1,000 MCG TAB PO SCH (09:16)
[2019-04-07] MEDS: Tamsulosin HCl 0.4 MG CAP PO SCH (09:16)
[2019-04-07] MEDS: guaiFENesin ER 600 MG TAB PO SCH ×2 (09:16→21:23)
[2019-04-07] MEDS: Aspirin Chewable 81 MG TAB PO SCH (09:16)
[2019-04-07] MEDS: Cefdinir 300 MG CAP PO SCH ×2 (09:22→21:24)
[2019-04-07] MEDS: Potassium Chloride 10 MEQ TAB PO SCH ×2 (09:22→21:23)
[2019-04-07] MEDS: Furosemide 40 MG TAB PO SCH ×2 (09:22→21:23)
[2019-04-07] MEDS: Spironolactone 100 MG TAB PO SCH ×2 (09:23→21:23)
[2019-04-07] MEDS: Propranolol HCl 20 MG TAB PO SCH ×2 (09:26→21:23)
--- NOTE | 2019-04-07 09:54 | CON ---
DATE OF CONSULTATION: HISTORY OF PRESENT ILLNESS: Mr. Tinoco is a 58-year-old male, who was initially admitted for cellulitis of the left lower extremity and ?CHF. The patient was initially complaining of cough at the ER. In the emergency room, he was noted to be wheezing, but his chest x-ray was normal. He also had an elevated BNP. For that reason, he was started on IV antibiotics, Zosyn and Lasix were given. We are now being consulted for his acute kidney injury. Please note, his initial creatinine on admission was 1.5 and peaked about 1.79. He was subsequently given Super Albumin to improve the renal perfusion and creatinine slightly improved at 1.7. We are asked to further evaluate his acute kidney injury. REVIEW OF SYSTEMS: Positive for cough. Positive for mild shortness of breath. No nausea. No itching. No abdominal pain. No hemoptysis. Positive for cough. No hematochezia. No melena. No hematemesis. No syncopal episode. No productive cough. PAST MEDICAL HISTORY: The patient has history of cirrhosis with portal hypertension. He also has ascites. He also has a history of type 2 diabetes mellitus, hypertension, chronic diastolic heart failure, status post hepatic encephalopathy, BPH, morbid obesity, and history of chronic hepatitis C-status post treatment. PAST SURGICAL HISTORY: Includes status post colonoscopy, status post liver biopsy. SOCIAL HISTORY: The patient lives in [place]. with 2 children. No history of smoking previously with heavy alcohol use. 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 Education, 10th grade. No blood transfusion. No IV drug use. FAMILY HISTORY: Positive family history of ESRD. ALLERGIES: NONE. TRAUMA: None. IMMUNIZATION: Up-to-date. HOSPITALIZATION: Please see past medical history. PHYSICAL EXAMINATION: VITAL SIGNS: Blood pressure 145/70, heart rate 87, respiratory rate 18, temperature 98.2, and pulse ox 98%. GENERAL: Awake, alert, comfortable, not in overt distress. SKIN: Adequate turgor. HEENT: He has pinkish conjunctivae. Anicteric sclerae. NECK: No neck mass. No carotid bruits. No JVD. CHEST: No deformities. LUNGS: Clear breath sounds. HEART: Normal sinus rhythm. No murmur. No gallops. No rubs. ABDOMEN: Globular, soft, nontender. No masses. EXTREMITIES: Positive for edema. No deformities. NEUROLOGICAL: Awake and oriented to 3 spheres. Moving all extremities. No tremors. No asterixis. No ataxia. MEDICATIONS: Includes, 1. Albumin 25 g IV q.6 hours. 2. Aspirin 81 mg tablet once a day. 3. Calcium carbonate 1000 mg q.4 p.r.n. 4. Cefdinir 300 mg p.o. b.i.d. 5. Cyanocobalamin 1000 mcg tablet daily. 6. Lovenox 100 mg subcu q.12. 7. Folic acid 1 mg daily. 8. Furosemide 40 mg p.o. b.i.d. 9. Humalog sliding scale. 10. Hydrocodone p.r.n. 11. Lactulose 20 g p.o. b.i.d. 12. Zofran 4 mg p.o. q.6 p.r.n. 13. KCl 10 mEq p.o. b.i.d. 14. Xifaxan 550 mg p.o. b.i.d. 15. Spironolactone 100 mg p.o. b.i.d. 16. Tamsulosin 0.4 mg p.o. b.i.d.. LABORATORY DATA: Laboratories of April 07, 2019; hemoglobin is 7.5 and hematocrit 22.5. Creatinine is 1.7. April 06, 2019, creatinine 1.76. April 05, 2019, creatinine 1.5. January 07, 2019, creatinine 0.96. April 06, 2019, cardiac echo, currently pending. ASSESSMENT/PLAN: 1. Acute kidney injury-consider hemodynamically-mediated renal dysfunction. The patient has cirrhosis and ascites. Currently, on a diuretic regimen. The plan is to extend IV infusion to 25 g IV q.6 for another 24 hours. Should the renal function worsen, we may need to adjust the diuretics downward. 2. Ascites, cirrhosis-supportive care. Currently on a diuretic regimen for the ascites. 3. Bronchitis, currently on p.o. antibiotics. 4. Anemia. Lovenox has been adjusted by his PCP. 5. Overall agree with current management. Job ID: [id number]
--- NOTE | 2019-04-07 11:48 | EKG ---
Test Reason : Blood Pressure : / mmHG Vent. Rate : 089 BPM Atrial Rate : 089 BPM P-R Int : 118 ms QRS Dur : 094 ms QT Int : 380 ms P-R-T Axes : 023 -06 030 degrees QTc Int : 462 ms Normal sinus rhythm Normal ECG Confirmed by DR. Thomas HILLIARD ([id number]) on 04/07/2019 11:48:08 AM Referred By: KEVIN Confirmed By:DR. Thomas HILLIARD
[2019-04-07] MEDS: HumaLOG 300 UNITS/3 ML VIAL SC PRN ×2 (12:31→17:50)
[2019-04-07 13:25] VITALS: BMI 34.6
[2019-04-07 14:27] LABS: Hemoglobin 7.5 g/dL (14.0-18.0); Platelet Count 69 thou/uL (130-400)
[2019-04-07 17:02] LABS: Vancomycin, Trough 20.3 ug/mL
[2019-04-07] MEDS: Insulin Glargine 10 UNITS in Pre-Filled Syringe 1 EACH SC SCH (21:24)
[2019-04-08 07:41] LABS: Anion Gap 10 mmol/L (10-20); BUN (Urea Nitrogen) 51 mg/dL (8.4-25.7); Calc. Creatinine Clearance 85 mL/min (70-130); Calcium 7.2 mg/dL (7.8-10.44); Carbon Dioxide 18 mmol/L (22-29); Chloride 113 mmol/L (98-107); Estimated GFR-MDRD 50; Glucose 180 mg/dL (70-105); Potassium 3.3 mmol/L (3.5-5.1); Sodium 138 mmol/L (136-145)
[2019-04-08] MEDS ORDERED: Albumin 25% 25 GM/100 ML BOT IVPB SCH ×2 (08:00→14:00)
[2019-04-08] MEDS: Propranolol HCl 20 MG TAB PO SCH (08:26)
[2019-04-08] MEDS: Spironolactone 100 MG TAB PO SCH (08:26)
[2019-04-08] MEDS: Tamsulosin HCl 0.4 MG CAP PO SCH (08:26)
[2019-04-08] MEDS: Cefdinir 300 MG CAP PO SCH (08:26)
[2019-04-08] MEDS: Rifaximin 550 MG TAB PO SCH (08:26)
[2019-04-08] MEDS: guaiFENesin ER 600 MG TAB PO SCH (08:26)
[2019-04-08] MEDS: Potassium Chloride 10 MEQ TAB PO SCH (08:27)
[2019-04-08] MEDS: Folic Acid 1 MG TAB PO SCH (08:27)
[2019-04-08] MEDS: Famotidine 20 MG TAB PO SCH (08:27)
[2019-04-08] MEDS: Cyanocobalamin (Vitamin B-12) 1,000 MCG TAB PO SCH (08:27)
[2019-04-08] MEDS: Aspirin Chewable 81 MG TAB PO SCH (08:27)
[2019-04-08] MEDS: Furosemide 40 MG TAB PO SCH (08:27)
--- NOTE | 2019-04-08 09:16 | DIS ---
DATE OF ADMISSION: 04/05/2019 DATE OF DISCHARGE: 04/08/2019 DISPOSITION: Discharged home. PRIMARY CARE PROVIDER: Jean Pierre Kerr MD [employer] NETWORK ENGINEER: Himanshu Dixon MD FINAL DIAGNOSES: 1. Acute bronchitis. 2. Acute on chronic diastolic heart failure. 3. Diabetes mellitus, type 2. 4. Anemia of chronic disease. 5. Cirrhosis. 6. Hepatitis C. 7. Non-ST elevation myocardial infarction. 8. Lactic acidosis. DISCHARGE MEDICATIONS: 1. Flomax 0.4 mg a day. 2. Folic acid 1 mg a day. 3. Aldactone 100 mg 3 times a day. 4. Xifaxan 550 mg twice a day. 5. Propranolol 20 mg twice a day. 6. Lasix 40 mg twice a day. 7. Cefdinir 300 mg p.o. b.i.d. x7 days. 8. Calcium carbonate 1000 mg p.o. q.4 hours p.r.n. 9. Aspirin 81 mg a day. ALLERGIES: NO KNOWN DRUG ALLERGIES. DIET: Renal. PENDING AT TIME OF DISCHARGE: Nothing. CODE STATUS: Full resuscitation. HOSPITAL COURSE: The patient admitted to [facility] through [facility] with acute shortness of breath and diagnoses of diastolic heart failure exacerbation, acute bronchitis, cellulitis of his left leg. Initial laboratory; white count 11.8, hemoglobin 9.3, and platelet count 95,000. INR 1.8. Creatinine 1.5, BUN 40, chloride 113, and CO2 of 17. Lytes balanced. Lactic acid was minimally elevated to 2.4. The patient had elevated troponins. The patient was started on IV antibiotics with broad-spectrum antibiotics. The patient was started on IV diuresis. Initial chest x-ray showed mild pulmonary vascular congestion. Blood cultures were unrevealing. The erythema in his left leg resolved within 36 hours. His lactic acidosis resolved. He was seen in consultation by Dr. Dannie Gaston and Dr. Himanshu Morrissey. Echocardiogram was read by Dr. Gaston, where LVEF was reported. Abdominal ultrasound was done reveals small amount of ascites. The patient improved rapidly during his hospital stay. At this time, I have discussed his progress with Dr. Morrissey. He is agreeable with discharge at this time. The patient is agreeable with discharge. No procedures were done. The patient will be followed up by Dr. Morrissey as an outpatient, who will follow his renal function and his hemoglobin and hematocrit levels. The patient has previously been on hospice. This was apparently revoked before he came to the hospital. He was seen by hospice yesterday. He and his family to be followed up by Dr. Morrissey in 1 week. Job ID: [id number]
--- NOTE | 2019-04-08 09:21 | PRG ---
DATE OF SERVICE: 04/08/2019 SUBJECTIVE: Mr. Tinoco is a 58-year-old male, who was seen by [facility] for his acute kidney injury on top of his presumptive chronic renal failure. He had hemodynamically-mediated renal dysfunction. He was given albumin support. He has also been diuresed for his underlying ascites and leg edema. This morning, he voices no new complaints. He denies any chest pain or shortness of breath. OBJECTIVE: VITAL SIGNS: Blood pressure 133/57, heart rate 74, respiratory rate 16, temperature 98.6, and pulse ox 99%. GENERAL: Awake, alert, comfortable, not in distress. SKIN: Adequate turgor. HEENT: Slightly pale conjunctivae. Anicteric sclerae. No neck mass. No carotid bruits. No JVD. CHEST: No deformities. LUNGS: Clear breath sounds. HEART: Normal sinus rhythm. No murmurs. No gallops. No rubs. ABDOMEN: Globular, soft, and nontender. No masses. EXTREMITIES: Positive for edema, but no deformities. Mild right leg erythema. MEDICATIONS: Medications of April 08, 2019, were reviewed. LABORATORY DATA: Laboratories of April 08, 2019: Sodium 138, potassium 3.3, chloride 113, carbon dioxide 18, BUN 51, creatinine 1.45, glucose 180, and calcium 7.2. ASSESSMENT AND PLAN: 1. Acute kidney injury/chronic renal failure - superimposed prerenal azotemia, improved creatinine with albumin infusion. Creatinine is now 1.45. No indication for any dialytic intervention. Continue current management. 2. Anemia, continuing to observe. If persistent, this patient may need an outpatient colonoscopy or upper GI endoscopy. 3. Proteinuria - the patient may have underlying intrinsic glomerulonephritis. It is possible that the patient may have underlying diabetic nephropathy. 4. Overall, agree with current management. We will follow this patient in the outpatient renal clinic. Job ID: [id number]
[2019-04-08] MEDS: HumaLOG 300 UNITS/3 ML VIAL SC PRN (11:50)
[2019-04-08 12:11] VITALS: BP 143/72; TEMP 98.4
== END 2019-04-08 13:32 | disposition home or self-care (01) | DRG 871 ==
LOC: ERS 12:08 → 2NO 16:27
PROVIDERS: ADMIT Internal Medicine; ATTEND Internal Medicine
DX: A41.9 Sepsis, unspecified organism (principal); I21.A1 Myocardial infarction type 2; I50.33 Acute on chronic diastolic (congestive) heart failure; L03.116 Cellulitis of left lower limb; N17.9 Acute kidney failure, unspecified; E87.2 Acidosis; N39.0 Urinary tract infection, site not specified; K76.6 Portal hypertension; I11.0 Hypertensive heart disease with heart failure; R65.20 Severe sepsis without septic shock; K74.60 Unspecified cirrhosis of liver; N40.0 Benign prostatic hyperplasia without lower urinary tract symptoms; E66.01 Morbid (severe) obesity due to excess calories; D53.9 Nutritional anemia, unspecified; B18.2 Chronic viral hepatitis C; D69.6 Thrombocytopenia, unspecified; J20.9 Acute bronchitis, unspecified; Z68.34 Body mass index [BMI] 34.0-34.9, adult; Z79.899 Other long term (current) drug therapy; Z79.4 Long term (current) use of insulin
CPT/HCPCS: 36415; 36416; 71045; 76705; 80048; 80053; 80202; 81003; 81015; 82140; 82553; 82565; 83605; 83735; 83880; 84443; 84484; 84550; 85014; 85018; 85025; 85049; 85610; 87040; 93005; 93010; 93306; 93798; 94640; 96365; 96375; 96376; J1650; J1815; J1940; J2543; J2920; J3370; J3490; J7050; J7620; P9047

== ENCOUNTER 2019-04-13 13:25 | Observation (INO) | payer OTHER ==
[2019-04-13 14:19] LABS: #Eosinphils 0.4 thou/uL (0.0-0.7); #Lymphocytes 1.3 thou/uL (1.20-3.40); #Monocytes 0.4 thou/uL (0.11-0.59); #Neutrophils 3.2 thou/uL (1.40-6.50); %Basophils 0.6 % (0.0-1.0); %Eosinophils 7.3 % (0.0-10.0); %Lymphocytes 23.9 % (21.0-51.0); %Monocytes 8.3 % (0.0-10.0); %Neutrophils 59.8 % (42.0-75.0); Hemoglobin 8.3 g/dL (14.0-18.0); Mean Corpuscular HGB CONC 35.1 g/dL (32.0-36.0); Mean Corpuscular Volume 94.2 fL (78.0-98.0); Mean Platelet Volume 6.9 fL (7.4-10.4); Platelet Count 142 thou/uL (130-400); RBC Distribution Width 12.6 % (11.5-14.5); White Blood Cell (WBC) Count 5.3 thou/uL (4.8-10.8)
--- NOTE | 2019-04-13 14:33 | RAD ---
Chest AP view INDICATION: Right-sided facial droop COMPARISON: April 05, 2019 FINDINGS: Lungs:There is increased airspace opacity in the left lower lobe and patchy opacities in the right mi ddle lobe Cardiac silhouette pulmonary vasculature:There is cardiomegaly with pulmonary vascular congestion Pleural spaces:No pleural effusion or pneumothorax is demonstrated. Upper abdomen:No abnormality seen. Osseous structures: No acute osseous abnormality. Additional findings:None. IMPRESSION: Cardiomegaly with pulmonary vascular congestion. Recommend correlation for CHF. There is increased airspace opacity in left lower lobe and right middle lobe which may reflect edema; however, pneumonia or aspiration is not excluded.
[2019-04-13 14:41] LABS: ALT (SGPT) 16 U/L (8-55); AST (SGOT) 27 U/L (5-34); Albumin 1.7 g/dL (3.5-5.0); Alkaline Phosphatase 134 U/L (40-150); Anion Gap 9 mmol/L (10-20); BUN (Urea Nitrogen) 42 mg/dL (8.4-25.7); Bilirubin, Total 0.7 mg/dL (0.2-1.2); Calc. Creatinine Clearance 0 mL/min (70-130); Calcium 7.6 mg/dL (7.8-10.44); Carbon Dioxide 18 mmol/L (22-29); Chloride 113 mmol/L (98-107); Estimated GFR-MDRD 58; Globulin 2.8 g/dL (2.4-3.5); Glucose 330 mg/dL (70-105); Potassium 3.6 mmol/L (3.5-5.1); Protein, Total 4.5 g/dL (6.0-8.3); Sodium 136 mmol/L (136-145)
--- NOTE | 2019-04-13 14:41 | CT ---
CT Brain WO Con: 04/13/2019 2:12 PM CLINICAL HISTORY: Right-sided facial droop. IMAGING TECHNIQUE: Multiple CT images were obtained of the brain without IV contrast. COMPARISON: March 18, 2019 FINDINGS: Infarct: No acute infarct evident. Hemorrhage: None.. Hydrocephalus: None.. Basal cisterns: Normal.. Cerebral parenchyma: There is stable diffuse cerebral and cerebellar atrophy. Midline shift: None.. Cerebellum: Normal. Brainstem: Normal. OTHER: Calvarium: Intact.. Visualized Paranasal sinuses: Clear.. Extracranial soft tissues:Normal. IMPRESSION: No acute intracranial abnormality.
[2019-04-13 15:51] LABS: Bilirubin Negative (Negative); Blood, Urine 2+ (Negative); Clarity Clear (Clear); Glucose, Urine (Dipstick) 300 mg/dL (Negative); Leukocyte Negative Leu/uL (Negative); Nitrite Negative (Negative); Protein, Urine (Dipstick) 300 mg/dL (Neg-Trace); Squamous Epithelial 0-3 HPF (0-3); Urobilinogen Normal mg/dL (Less than 2)
[2019-04-13 15:54] LABS: Bacteria/HPF None Seen HPF (None Seen)
[2019-04-13] MEDS ORDERED: Aspirin Chewable 81 MG TAB ONE (16:03)
[2019-04-13] MEDS ORDERED: Ondansetron ODT 4 MG TAB PO PRN (20:03)
[2019-04-13] MEDS ORDERED: Ondansetron PF 4 MG/2 ML Vial IVP PRN (20:03)
[2019-04-13] MEDS ORDERED: Senokot S 8.6-50 MG TAB PO PRN (20:03)
[2019-04-13] MEDS ORDERED: Acetaminophen 325 MG TAB PO PRN (20:03)
[2019-04-13] MEDS ORDERED: Acetaminophen 650 MG Suppository PR PRN (20:03)
[2019-04-13 20:37] LABS: Troponin I Less than 0.010 ng/mL (< 0.028)
[2019-04-13] MEDS ORDERED: Dextrose 50% Abboject 50 ML SYRINGE SLOW IVP PRN (21:17)
[2019-04-13] MEDS ORDERED: Dextrose 5% in Water 1,000 ML IV PRN (21:17)
[2019-04-13] MEDS ORDERED: HumaLOG 300 UNITS/3 ML VIAL SC PRN (21:17)
[2019-04-13] MEDS: Famotidine/PF 20 mg/2ml Vial SLOW IVP SCH (21:36)
[2019-04-13 22:43] VITALS: BMI 49.4
[2019-04-13] MEDS ORDERED: Furosemide 20 MG TAB PO SCH (23:30)
[2019-04-13] MEDS ORDERED: Spironolactone 25 MG TAB PO SCH (23:30)
[2019-04-13] MEDS ORDERED: Calcium Carbonate 500 MG ChewTAB PO SCH (23:30)
[2019-04-13] MEDS ORDERED: Rifaximin 550 MG TAB PO SCH (23:30)
[2019-04-13] MEDS ORDERED: guaiFENesin ER 600 MG TAB PO SCH (23:30)
[2019-04-13] MEDS ORDERED: Propranolol HCl 20 MG TAB PO SCH (23:30)
[2019-04-14 04:02] LABS: #Eosinphils 0.4 thou/uL (0.0-0.7); #Lymphocytes 1.3 thou/uL (1.20-3.40); #Monocytes 0.5 thou/uL (0.11-0.59); #Neutrophils 2.9 thou/uL (1.40-6.50); %Basophils 0.9 % (0.0-1.0); %Lymphocytes 25.5 % (21.0-51.0); %Neutrophils 56.5 % (42.0-75.0); Hemoglobin 7.9 g/dL (14.0-18.0); Mean Corpuscular HGB CONC 35.4 g/dL (32.0-36.0); Mean Corpuscular Volume 93.2 fL (78.0-98.0); Mean Platelet Volume 6.7 fL (7.4-10.4); Platelet Count 127 thou/uL (130-400); RBC Distribution Width 12.8 % (11.5-14.5); Red Blood Cell (RBC) Count 2.37 mill/uL (4.70-6.10); White Blood Cell (WBC) Count 5.2 thou/uL (4.8-10.8)
[2019-04-14 04:22] LABS: Anion Gap 7 mmol/L (10-20); BUN (Urea Nitrogen) 37 mg/dL (8.4-25.7); Calc. Creatinine Clearance 123 mL/min (70-130); Calcium 7.9 mg/dL (7.8-10.44); Carbon Dioxide 19 mmol/L (22-29); Chloride 115 mmol/L (98-107); Estimated GFR-MDRD 70; Glucose 189 mg/dL (70-105); Potassium 3.4 mmol/L (3.5-5.1); Sodium 138 mmol/L (136-145)
[2019-04-14] MEDS: HumaLOG 300 UNITS/3 ML VIAL SC PRN ×2 (06:28→11:15)
--- NOTE | 2019-04-14 07:39 | HP ---
PRIMARY CARE PHYSICIAN: Jean Pierre Kerr MD CHIEF COMPLAINT: Left facial swelling. HISTORY OF PRESENT ILLNESS: Mr. Tinoco is a 58-year-old man, who was brought to the emergency department by his , who was concerned after coming home and noting that the left side of his face was swollen and with a mild left facial droop. The patient denies having any complaints and states he slept in today waking up shortly before his arrived. The patient denies any facial numbness or weakness. He states he feels as he normally does. He reports sleeping on his left side and waking up every morning with some dependent edema involving the left cheek. He states he usually washes his face with cold water and it gets better throughout the day. He states this has been long-standing and unchanged, today only that he woke up later in the day and had just gotten up when she came home. Denies having any headache. He denies any vision changes. No extremity weakness or numbness. No unsteady gait. Denies any chest pain, palpitations, or shortness of breath. The patient states he has been doing his best to adhere to a low-sodium diet, but finds it difficult to limit his fluid intake. He was recently admitted with CHF exacerbation. He denies having any worsening in lower extremity edema. No other complaints. PAST MEDICAL HISTORY: 1. Liver cirrhosis. 2. Diabetes. 3. Hypertension. 4. CHF. PAST SURGICAL HISTORY: None. SOCIAL HISTORY: The patient was a former drug user, previously smoked marijuana. He previously smoked cigarettes as well. Denies any alcohol intake. ALLERGIES: NO KNOWN DRUG ALLERGIES. CURRENT MEDICATIONS: 1. Potassium chloride. 2. Decara. 3. Tramadol. 4. Spironolactone. 5. Xifaxan. 6. Lasix. 7. Propranolol. 8. Folic acid. 9. Tamsulosin. 10. Levemir. PHYSICAL EXAMINATION: GENERAL: The patient appears well developed, well nourished, and in no acute distress. VITAL SIGNS: Temperature 97.9, pulse 69, respirations 18, O2 saturation 100% on room air, blood pressure 145/67. HEENT: Normocephalic and atraumatic. Pupils are equal, round, and reactive to light. Sclerae are without icterus. Oropharynx is clear. He has notable slight puffiness to the left cheek with slight amount of puffiness involving the left eyelid. This is nontender without any erythema and the patient without any pain along the jaw. NECK: Supple. LUNGS: Clear to auscultation bilaterally. CARDIAC: Regular rate and rhythm. ABDOMEN: Obese, nontender, nondistended. Normoactive bowel sounds present. EXTREMITIES: With chronic venous stasis changes and nonpitting edema. The patient states this is stable. NEUROLOGIC: Alert and oriented x3. Speech normal. Facial movements normal. Sensation intact. Power 5/5 in all limbs. Gait normal. No neuro deficits on exam. LABORATORY DATA: White blood count 5.3, hemoglobin 9.3, hematocrit 23.5, platelets 142. Sodium 136, potassium 3.6, BUN 42, creatinine 1.27, GFR 58, glucose 330, calcium 7.6, total bilirubin 0.7. LFTs unremarkable. Troponin negative x2. Ammonia 30. BNP 1267.6 compared to 3310 previously. Albumin 1.7. TSH 1.8. Urinalysis notable for 2+ blood, 300 of protein, 11 to 20 red blood cells, 4 to 6 white blood cells, no bacteria. No nitrites, no leukocyte esterase, hyaline casts 11 to 20. IMPRESSION AND PLAN: Mr. Tinoco is a 58-year-old gentleman, who presented to the emergency department due to concerns from his regarding left facial drooping. The patient states he often has what sounds like dependent edema from lying on his left side and not moving at all, waking up with edema of the eyelid and the left cheek. He states this is longstanding. Denies having any numbness or tingling. No weakness. No slurred speech. He has not had any headaches. No neuro deficits on exam. No clinical suspicion for any TIA/CVA. The patient does have a history of CHF and underwent investigations recently after being admitted with CHF exacerbation. Last echo was on 04/08/2019, which showed an EF of 50% to 55% with moderately dilated left atrium, mild MR, aortic valve was sclerotic, and mild TR. The patient was already moved to the Stroke Unit when I saw him. Following discussion with attending, we did not request further workup. He did have a CT of the brain done in the emergency department, that was unremarkable. The patient is anemic and this is stable. He has a low albumin and low serum total protein. During last admission, he did receive protein according to the patient. BNP significantly improved to previous admission when it was in the 3000s. The patient is doing very well at this present time. We will keep him and monitor him overnight. Further management and disposition as per day team. He has a history of hypertension. We will resume home medications and monitor blood pressure. He also has diabetes mellitus. We will initiate insulin sliding scale and monitor blood glucose. Code status full. His surrogate decision maker is his , Farzana Tinoco. Job ID: [id number] MTDD
[2019-04-14] MEDS ORDERED: Furosemide 40 MG TAB PO SCH (09:00)
[2019-04-14] MEDS ORDERED: Folic Acid 1 MG TAB PO SCH (09:00)
[2019-04-14] MEDS ORDERED: Rifaximin 550 MG TAB PO SCH (09:00)
[2019-04-14] MEDS ORDERED: Tamsulosin HCl 0.4 MG CAP PO SCH (09:00)
[2019-04-14] MEDS ORDERED: Spironolactone 25 MG TAB PO SCH (09:00)
[2019-04-14] MEDS ORDERED: guaiFENesin ER 600 MG TAB PO SCH (09:00)
[2019-04-14] MEDS ORDERED: Aspirin Chewable 81 MG TAB PO SCH (09:00)
[2019-04-14] MEDS ORDERED: Calcium Carbonate 500 MG ChewTAB PO SCH (09:00)
[2019-04-14] MEDS ORDERED: Propranolol HCl 20 MG TAB PO SCH (09:00)
[2019-04-14] MEDS: Famotidine/PF 20 mg/2ml Vial SLOW IVP SCH (09:27)
[2019-04-14 11:53] VITALS: BP 152/74; TEMP 98.2
--- NOTE | 2019-04-14 12:01 | MRI ---
MRI BRAIN WITHOUT CONTRAST: HISTORY: Left facial droop COMPARISON: None CORRELATION: CT scan from 04/13/2019. FINDINGS: No restricted diffusion is seen. There are few tiny foci of T2 prolongation in the periventricular wh ite matter, consistent with mild chronic small vessel ischemic disease. The ventricular size is appropriate and the basilar cisterns are patent. No evidence of acute infarct, hemorrhage, midline shift or abnormal extra-axial fluid collections is seen. There is mucosal disease in the paranasal sinuses. There is fluid in the mastoid air cells. IMPRESSION: No evidence of acute intracranial process.
--- NOTE | 2019-04-14 16:14 | DIS ---
DATE OF ADMISSION: 04/13/2019 DATE OF DISCHARGE: 04/14/2019 CHIEF COMPLAINT ON ADMISSION: Left facial swelling and possible left facial droop. DISCHARGE DIAGNOSES: 1. Left facial droop concerning for transient ischemic attack on admission, acute cerebrovascular accident ruled out, symptoms resolved. 2. Chronic diastolic heart failure, stable. 3. Cirrhosis and chronic hypoalbuminemia. 4. Type 2 diabetes mellitus. 5. Chronic kidney disease, stage 2/3, creatinine stable and actually improved from last hospitalization. BRIEF HOSPITAL COURSE: The patient is a 58-year-old male with past medical history significant for chronic diastolic heart failure, cirrhosis, type 2 diabetes mellitus, and chronic kidney disease, who presented at the behest of his after she saw symptoms concerning for left facial droop. Apparently, the patient sleeps on his left side and often has some dependent edema when he wakes. Of note, the patient does have chronic hypoalbuminemia and resulting anasarca. In any case, she brought him to the hospital for further workup. The patient denied any weakness or numbness. He denied any slurred speech. He had a CT of his brain performed, which was negative for any acute intracranial abnormality. MRI showed no evidence of acute CVA, and some chronic small-vessel ischemic disease. The patient's presenting symptoms have completely resolved. He has no complaints at this time. He denies any chest pain or shortness of breath and is back to his baseline. CONDITION AT DISCHARGE: Stable. DISCHARGE INSTRUCTIONS AND FOLLOWUP: The patient will follow up with his primary care physician. Continue aggressive risk factor modification including aggressive control of his diabetes. He will monitor for any other concerning neurologic symptoms. He will also follow up with his other specialists including Dr. Morrissey. All the findings have been discussed with the patient, and all questions were answered. He will be discharged home in good condition today. Job ID: [id number]
[2019-04-20] MEDS ORDERED: Ergocalciferol 1.25 MG(50,000 UNITS) CAP PO SCH (09:00)
== END 2019-04-14 14:41 | disposition home or self-care (01) ==
LOC: ERS 13:25 → 2SE 13:32
PROVIDERS: ADMIT Internal Medicine; ATTEND Internal Medicine
DX: R29.810 Facial weakness (principal); I13.0 Hypertensive heart and chronic kidney disease with heart failure and stage 1 through stage 4 chronic kidney disease, or unspecified chronic kidney disease; E11.22 Type 2 diabetes mellitus with diabetic chronic kidney disease; N18.3 Chronic kidney disease, stage 3 (moderate); I50.32 Chronic diastolic (congestive) heart failure; E88.09 Other disorders of plasma-protein metabolism, not elsewhere classified; Z79.899 Other long term (current) drug therapy; Z87.891 Personal history of nicotine dependence
CPT/HCPCS: 36415; 36416; 70450; 70551; 71045; 80048; 80053; 81003; 81015; 82140; 83880; 84443; 84484; 85025; 93005; 96374; 96376; G0378; S0028

== ENCOUNTER 2019-06-07 14:18 | Emergency (ER) | payer OTHER ==
--- NOTE | 2019-06-07 15:10 | RAD ---
EXAM: XR Chest 1 View Portable PROVIDED CLINICAL HISTORY: Dyspnea COMPARISON: 04/13/2019 FINDINGS: Cardiac silhouette appears enlarged, which may be least partially on the basis of portable technique. Bibasilar parenchymal opacities are demonstrated, right greater than left. No pleural fluid or pneumothorax apparent. IMPRESSION: Bibasilar parenchymal opacities that may reflect subsegmental atelectasis and/or infiltrate. Correlat e with concerns for pneumonia. Follow-up is recommended.
[2019-06-07 15:50] LABS: #Eosinphils 0.3 thou/uL (0.0-0.7); #Lymphocytes 1.2 thou/uL (1.20-3.40); #Monocytes 0.7 thou/uL (0.11-0.59); #Neutrophils 8.6 thou/uL (1.40-6.50); %Basophils 0.3 % (0.0-1.0); %Eosinophils 3.2 % (0.0-10.0); %Lymphocytes 10.7 % (21.0-51.0); %Monocytes 6.5 % (0.0-10.0); %Neutrophils 79.3 % (42.0-75.0); Hemoglobin 8.7 g/dL (14.0-18.0); Mean Corpuscular HGB CONC 34.6 g/dL (32.0-36.0); Mean Corpuscular Volume 95.4 fL (78.0-98.0); Platelet Count 112 thou/uL (130-400); RBC Distribution Width 15.5 % (11.5-14.5); Red Blood Cell (RBC) Count 2.65 mill/uL (4.70-6.10); White Blood Cell (WBC) Count 10.8 thou/uL (4.8-10.8)
[2019-06-07 15:53] LABS: INR-International Normal Ratio 1.4; PTT 37.8 SEC (22.9-36.1); Prothrombin Time 17.1 SEC (12.0-14.7)
[2019-06-07 16:14] LABS: ALT (SGPT) 48 U/L (8-55); AST (SGOT) 60 U/L (5-34); Albumin 1.5 g/dL (3.5-5.0); Alkaline Phosphatase 118 U/L (40-150); Anion Gap 11 mmol/L (10-20); BUN (Urea Nitrogen) 62 mg/dL (8.4-25.7); Bilirubin, Total 1.3 mg/dL (0.2-1.2); Calc. Creatinine Clearance 0 mL/min (70-130); Calcium 7.2 mg/dL (7.8-10.44); Carbon Dioxide 17 mmol/L (22-29); Chloride 116 mmol/L (98-107); Estimated GFR-MDRD 29; Globulin 3.2 g/dL (2.4-3.5); Glucose 125 mg/dL (70-105); Lipase 7 U/L (8-78); Protein, Total 4.7 g/dL (6.0-8.3); Sodium 142 mmol/L (136-145)
[2019-06-07 16:26] LABS: Potassium 2.2 mmol/L (3.5-5.1)
[2019-06-07 17:03] LABS: Bacteria/HPF 4+ HPF (None Seen); Bilirubin Negative (Negative); Blood, Urine 2+ (Negative); Clarity Turbid (Clear); Glucose, Urine (Dipstick) Normal (Negative); Leukocyte 500 Leu/uL (Negative); Nitrite Negative (Negative); Protein, Urine (Dipstick) 100 mg/dL (Neg-Trace); Squamous Epithelial 0-3 HPF (0-3); Urobilinogen Normal mg/dL (Less than 2); WBC/HPF Greater than 50 HPF (0-3)
[2019-06-07 17:08] LABS: Mucous/LPF 1+ LPF (<2+)
[2019-06-07] MEDS ORDERED: cefTRIAXone\\ROCEPHIN 2 GM VIAL ONE (17:42)
[2019-06-07 18:25] LABS: Amphetamine Not Detected (NotDetected); Barbiturates Screen Not Detected (NotDetected); Benzodiazepine Screen Detected (NotDetected); Cocaine Metabolite Screen Not Detected (NotDetected); Medtox Control Line Valid? VALID (VALID); Medtox Reader # READER 4; Methadone Not Detected (NotDetected); Methamphetamine Not Detected (NotDetected); Opiate Screen Detected (NotDetected); Oxycodone Screen Not Detected (NotDetected); Phencyclidine (PCP) Not Detected (NotDetected); THC/Cannabinoid Screen Not Detected (NotDetected); Tricyclic Screen Not Detected (NotDetected)
== END 2019-06-07 19:00 | disposition home or self-care (01) ==
LOC: ERS 14:18
DX: I11.0 Hypertensive heart disease with heart failure (principal); E11.22 Type 2 diabetes mellitus with diabetic chronic kidney disease; I50.9 Heart failure, unspecified; N17.9 Acute kidney failure, unspecified; R60.1 Generalized edema; E87.6 Hypokalemia; J18.9 Pneumonia, unspecified organism; Z87.891 Personal history of nicotine dependence; Z79.899 Other long term (current) drug therapy
CPT/HCPCS: 36415; 71045; 80053; 80306; 81003; 81015; 82140; 83605; 83690; 83735; 83880; 84484; 85025; 85610; 85730; 87040; 93005; J0696